=== PATIENT | female | born 1960 | race Caucasian/White ===

== ENCOUNTER 2020-08-30 11:08 | Emergency (ER) | payer MEDICARE, MEDICAID, SELFPAY ==
--- NOTE | ~2020-08-30 | CT_ITS ---
EXAMINATION: CT HEAD WITHOUT CONTRAST CLINICAL INFORMATION: Syncope and head trauma COMPARISON: None TECHNIQUE: Contiguous axial imaging was performed from the skull base to vertex without intravenous administration of contrast. This CT examination was performed using dose optimization techniques as appropriate, variously including the following: *Automated exposure control *Adjustment of mA and/or kV according to patient size (this includes techniques or standardized protocols for targeted exams where dose is matched to indication/reason for exam; i.e. extremities or head) *Use of iterative reconstruction technique DLP: 695 mGy-cm FINDINGS: There is no evidence of acute intracranial hemorrhage or territorial infarction. No abnormal mass effect or midline shift is seen. Valles to white matter differentiation is well preserved. No extra-axial fluid collections are identified. The ventricles are normal in size. There is no abnormal attenuation within the brain parenchyma. The osseous structures and soft tissues are normal. The mastoid air cells and visualized portions of the paranasal sinuses are well aerated. CT/CT head/brain wo con IMPRESSION: No acute intracranial pathology.
[2020-08-30 11:17] VITALS: BP 141/79; PULSE 84; RESP 18; TEMP 36.7; O2SAT 100; BMI 20.5
--- NOTE | 2020-08-30 11:33 | ED_ITS ---
HPI - General Adult General Chief complaint: Fall Stated complaint: fall - head injury Time Seen by Provider: 08/30/20 11:23 Source: patient Mode of arrival: ambulatory Limitations: no limitations History of Present Illness HPI narrative: Patient has a pacemaker and low blood pressure and passes out frequently. she passed out last night and hit her head, not on blood thinners. Patient with nausea, a dent in her head and severe headache Onset (ago): day(s) Location: head Severity: moderate Quality: sharp Pain Consistency: constant Associated symptoms: nausea/vomiting Related Data Allergies Allergy/AdvReac Type Severity Reaction Status Date / Time nitrofurantoin Allergy Intermediate Muscle Pain Verified 08/30/20 11:16 [From MACROBID] From DEMEROL Allergy Intermediate HIVES Uncoded 08/30/20 11:16 Review of Systems Constitutional: Constitutional: Reports no additional constitutional complaints Eyes: Eyes: Reports no additional eye complaints ENT: Denies dizziness Cardiovascular: Cardiovascular: Reports no additional cardiovascular complaints Respiratory: Respiratory: Reports as per HPI Gastrointestinal: Gastrointestinal: Reports no additional gastrointestinal complaints Genitourinary: Genitourinary: Reports no additional female genitourinary complaints Musculoskeletal: Musculoskeletal: Reports no additional musculoskeletal complaints Integumentary/Breasts: Skin/Breast: Denies rash Neurologic: Reports system reviewed and no additional complaints, except as documented, Denies dizziness and Denies Sensory deficit (Neuro) Psychiatric: Psychiatric: Denies anxiety PMFSH Past Medical History Medical History Hypertension Hypotension Neck pain Pacemaker Syncope Social History Social History Alcohol intake: never Smoked in Last 30 Days: No Use of substances other than those prescribed or required for medical reasons: No Advance Directives: No Advance Directives Information Provided: Yes Patient : No Physical Exam Vital Signs: Vital Signs: Last Vital Signs Temp 98.0 F 08/30/20 11:17 Pulse 84 08/30/20 11:17 Resp 18 08/30/20 11:17 BP 141/79 H 08/30/20 11:17 Pulse Ox 100 08/30/20 11:17 Body Mass Index 20.5 Const: General: healthy appearing Nutritional Appearance: average body habitus Orientation/consciousness: oriented to person and patient oriented x3 Limitations: no limitations HENMT: Other: no hemotympanum, hematoma to left parietal area Head: Yes normal to inspection Ears: external ears normal General nose exam: Normal external nose present Mouth: Normal oral and palatal mucosa present and vasyl pharynx normal Throat: Yes posterior oropharynx normal Eyes: General: appearance normal, both eyes and all related structures Neck: Other: supple Neck: Yes normal visual inspection Chest: Chest palpation & inspection: normal inspection of the chest Resp: Auscultation: clear to auscultation bilaterally Cardio: Jugular venous distension: no JVD Rate: regular rate Rhythm: regular rhythm Heart sounds: S1 normal heart sound present and S2 normal heart sound present GI: Inspection: Yes normal to inspection Palpation (GI): Soft to palpation, nontender and No hepatosplenomegaly present Auscultation: normal bowel sounds : General: Yes no CVA tenderness Back/Spine/Pelvis: Back: no CVA tenderness Skin: General skin exam: no rashes or lesions noted Neuro: General: oriented to person and patient oriented x3 Cranial nerves: Yes CN's II-XII intact bilaterally Motor exam (neuro): 5/5 motor strength present throughout Sensory Exam: No Sensory deficit (Neuro) Extrem: General: Yes normal to inspection Psych: Appearance: grossly normal Course Reevaluation(s) Reevaluation #1: patient with known history of syncope with orthostatics and pacer. No evidence of brain or skull injury on Head CT Time: 14:22 Medical Decision Making Lab Data Result diagrams: 08/30/20 12:00 08/30/20 12:00 Labs: Lab Results 08/30/20 08/30/20 08/30/20 Range/Units 12:00 12:00 12:00 WBC 5.2 (4.8-10.8) X10*3/uL RBC 4.33 (4.20-5.50) X10*6/uL Hgb 11.8 L (12.0-16.0) g/dl Hct 37.5 (37-47) % MCV 86.6 (80-98) fL MCH 27.3 (27.0-33.0) pg MCHC 31.5 (31.0-35.0) g/dl RDW 13.7 (11.0-16.0) % Plt Count 250 (160-400) X10*3/uL MPV 9.8 (9.4-12.3) fL Immature Gran % (Auto) 0.4 (0.0-0.4) % Neut % (Auto) 63.0 (45-73) % Lymph % (Auto) 26.1 (20-40) % [place] % (Auto) 6.8 (2-11) % Eos % (Auto) 2.7 (0-4) % Baso % (Auto) 1.0 (0-2) % Lymph # (Auto) 1.4 (1.2-4.9) X10*3/uL [place] # (Auto) 0.4 (0.1-1.2) X10*3/uL Eos # (Auto) 0.1 (0.0-0.4) X10*3/uL Baso # (Auto) 0.1 (0.0-0.2) X10*3/uL Abs Immat Gran (auto) 0.02 (0.00-0.03) X10*3/uL Absolute Neuts (auto) 3.3 (2.0-8.3) X10*3/uL Absolute Nucleated RBC 0.000 (0.0-0.012) X10*3/uL Nucleated RBC % (auto) 0.0 (0.0-0.2) /100WBC Sodium 141 (135-145) mmol/L Potassium 3.9 (3.3-5.1) mmol/L Chloride 108 (96-108) mmol/L Carbon Dioxide 25 (22-29) mmol/L Anion Gap 12 (12-20) BUN 10 (9-16) mg/dL Creatinine 0.99 (0.5-1.4) mg/dL Estim Creat Clear Calc 53.2 Estimated GFR 58 Random Glucose 86 (60-115) mg/dL Calcium 9.3 (8.4-10.2) mg/dL Troponin I High Sens < 3.5 (<3.5-17.0) ng/L Imaging Data CT scan - head: Radiologist's impression: IMPRESSION: No acute intracranial pathology. ECG Data Attestation: I personally reviewed and interpreted this ECG as follows: Interpretation: atrial paced no ischemia Discharge Plan Discharge Clinical Impression: Acute head trauma Qualifiers: Encounter type: initial encounter Qualified Code(s): S09.90XA - Unspecified injury of head, initial encounter Syncope Qualifiers: Syncope type: unspecified Qualified Code(s): R55 - Syncope and collapse Patient Disposition: Home, Self-Care Instructions: Concussion (ED), Syncope (ED) Referrals: Tamika Barba PA [Primary Care Provider] - 5 days
--- NOTE | 2020-08-30 11:36 | ECG_ITS ---
Test Reason : FALL Blood Pressure : / mmHG Vent. Rate : 080 BPM Atrial Rate : 080 BPM P-R Int : 172 ms QRS Dur : 092 ms QT Int : 386 ms P-R-T Axes : 089 047 058 degrees QTc Int : 445 ms Atrial-paced rhythm Low voltage QRS Abnormal ECG No previous ECGs available Referred By: Edmond Marr Electronically Signed By:TOMER RECIO
[2020-08-30] MEDS: Acetaminophen 325 MG TABLET 975 MG PO (11:56)
[2020-08-30 12:16] LABS: MANUAL DIFF FLAG NO
[2020-08-30 12:17] LABS: Basophils Absolute Auto 0.1 X10*3/uL (0.0-0.2); Eosinophils Absolute Auto 0.1 X10*3/uL (0.0-0.4); Eosinophils Percent Auto 2.7 % (0-4); Hematocrit 37.5 % (37-47); Hemoglobin 11.8 g/dl (12.0-16.0); Imm Gran Abs Auto 0.02 X10*3/uL (0.00-0.03); Imm Gran Pct Auto 0.4 % (0.0-0.4); Lymphocytes Absolute Auto 1.4 X10*3/uL (1.2-4.9); Lymphocytes Percent Auto 26.1 % (20-40); Mean Corpuscular HGB Conc 31.5 g/dl (31.0-35.0); Mean Corpuscular Hemoglobin 27.3 pg (27.0-33.0); Mean Corpuscular Volume 86.6 fL (80-98); Mean Platelet Volume 9.8 fL (9.4-12.3); Monocytes Absolute Auto 0.4 X10*3/uL (0.1-1.2); Monocytes Percent Auto 6.8 % (2-11); Neutrophils Absolute Auto 3.3 X10*3/uL (2.0-8.3); Platelet Count 250 X10*3/uL (160-400); Red Blood Count 4.33 X10*6/uL (4.20-5.50); Red Cell Distribution Width 13.7 % (11.0-16.0); White Blood Count 5.2 X10*3/uL (4.8-10.8)
[2020-08-30 12:43] LABS: Anion Gap 12 (12-20); Blood Urea Nitrogen 10 mg/dL (9-16); Calcium 9.3 mg/dL (8.4-10.2); Carbon Dioxide 25 mmol/L (22-29); Chloride 108 mmol/L (96-108); Creatinine Clr Calc Pharmacy 53.2; Estimated Glomerular Filt Rate 58; Glucose Random 86 mg/dL (60-115); Potassium 3.9 mmol/L (3.3-5.1); Sodium 141 mmol/L (135-145)
[2020-08-30 12:46] LABS: Troponin-I High Sensitivity < 3.5 ng/L (<3.5-17.0)
[2020-08-30 14:26] VITALS: BP 155/85; PULSE 80; RESP 16; TEMP 36.8; O2SAT 100
== END 2020-08-30 14:29 | disposition home or self-care (01) ==
PROVIDERS: Emergency Provider Emergency Medicine; PCP Physician Assistant Medical
DX: R55 Syncope and collapse (principal); S09.90XA Unspecified injury of head, initial encounter; I95.9 Hypotension, unspecified; I10 Essential (primary) hypertension; W18.30XA Fall on same level, unspecified, initial encounter; Y93.9 Activity, unspecified; Y92.9 Unspecified place or not applicable; Y99.9 Unspecified external cause status; Z95.0 Presence of cardiac pacemaker
CPT/HCPCS: 36415; 70450; 80048; 84484; 85025; 93005; 99285

== ENCOUNTER 2023-03-30 12:44 | Emergency (ER) | payer MEDICARE, MEDICAID, SELFPAY ==
--- NOTE | ~2023-03-30 | XR_ITS ---
EXAMINATION: XR WRIST, LEFT CLINICAL INFORMATION: Status post fall. Left wrist pain. COMPARISON: None available. TECHNIQUE: PA, lateral, and oblique views of the left wrist. FINDINGS: Impacted intra-articular distal radial metaphyseal fracture is noted with dorsal angulation. Radiocarpal alignment is maintained. Mildly displaced ulnar styloid fracture. Soft tissue swelling over the wrist and distal forearm is noted. No evidence of soft tissue air or radiopaque foreign body. No additional acute fractures of the remainder of the visualized osseous structures are noted. Osteoarthritic changes are noted at first carpal metacarpal articulation. XR/XR wrist LT min 3V IMPRESSION: Impacted intra-articular left distal radial metaphyseal fracture with dorsal angulation. Radiocarpal alignment appears to be maintained. Minimally displaced ulnar styloid fracture.
--- NOTE | ~2023-03-30 | XR_ITS ---
EXAMINATION: XR WRIST, LEFT CLINICAL INFORMATION: Post reduction film. COMPARISON: Radiograph left wrist earlier today 1:46 PM to 06/14/2023. TECHNIQUE: Two views of the left wrist. FINDINGS: Overlying casting limits evaluation of fine osseous details. Stable appearance of impacted intra-articular distal radial fracture with unchanged dorsal angulation. Stable minimally displaced ulnar styloid fracture. Similar degree of soft tissue swelling. XR/XR wrist LT min 3V IMPRESSION: Stable appearance of distal radial and ulnar styloid fractures.
--- NOTE | ~2023-03-30 | XR_ITS ---
EXAMINATION: XR WRIST, LEFT CLINICAL INFORMATION: Postreduction films. COMPARISON: Left wrist performed earlier today at 4:34 PM. TECHNIQUE: PA, lateral, and oblique views of the left wrist. FINDINGS: There is satisfactory alignment of distal radial intra-articular fracture with mild dorsal angulation. The entire left wrist and the adjacent structures are in a hard cast. XR/XR wrist LT min 3V IMPRESSION: Satisfactory alignment of distal radial intra-articular fracture status post reduction with mild dorsal angulation. Entire left wrist is in a hard cast no change from early exam at 4:34 PM.
[2023-03-30 12:52] VITALS: BP 190/98; BMI 21.5
--- NOTE | 2023-03-30 13:26 | ED_ITS ---
HPI - Fall General Chief Complaint: Fall Stated Complaint: FELL L WRIST DEFORMITY Time Seen by Provider: 03/30/23 13:24 Source: patient, family () and EMS Mode of arrival: EMS Limitations: no limitations History of Present Illness HPI Narrative: 62 year old right hand dominant female with no significant pmhx presents to the ED today via EMS with left wrist pain s/p FOOSH prior to arrival. Admits to popping balloons, stomping on them when she lost her balance causing her to fall backwards. She attempted to catch herself with her left hand/wrist. Endorses immediate pain/ deformity to left wrist. Denies head strike or LOC. Not on AC. Has not taken any OTC meds prior to arrival in ED. Denies headache, dizziness, fevers, nausea, vomiting, numbness/tingling/weakness of the left upper extremity. Related Data Previous Rx's Medication Instructions Recorded ondansetron 4 mg disintegrating 4 mg PO DAILY PRN nausea and 03/30/23 tablet vomiting 5 days #10 tabs oxycodone 5 mg tablet 5 mg PO Q8H PRN pain (scale score 03/30/23 7-10) #10 tabs prednisone 20 mg tablet 20 mg PO DAILY 5 days #5 tabs 03/30/23 Allergies Allergy/AdvReac Type Severity Reaction Status Date / Time nitrofurantoin Allergy Intermediate Muscle Pain Verified 08/30/20 11:16 [From MACROBID] From DEMEROL Allergy Intermediate HIVES Uncoded 08/30/20 11:16 Review of Systems Review of Systems: Constitutional: No fever, chills, fatigue, night sweats, weight changes ENT/Mouth: No ear pain, hearing loss, nasal congestion, sinus pain, rhinorrhea, sore throat Eyes: No eye pain, swelling, redness, vision changes, discharge Cardio: No chest pain, palpitations, MARTI, orthopnea, peripheral edema Pulm: No SOB, cough, sputum, wheezing, dyspnea, hemoptysis GI: No nausea, vomiting, hematemesis, abdominal pain, diarrhea, constipation, hematochezia, melena : No irregular bleeding, dysuria, frequency, urgency, hesitancy, hematuria, flank pain, urinary flow changes, urinary incontinence or retention MSK: No back pain, neck pain, joint pain, myalgias, +left wrist pain/ deformity Skin: No lesions, rashes Neuro: No weakness, numbness, paresthesias, LOC, dizziness, headache All other systems reviewed and are negative. [facility] Past Medical History Attestation statement: The following information was validated with the patient. Source: old records reviewed and nursing notes reviewed Medical History Neck pain Syncope Hypertension Hypotension Pacemaker Social History Social History Alcohol intake: current Alcohol intake frequency: holidays/special occasions only Smoked in Last 30 Days: No Use of substances other than those prescribed or required for medical reasons: No Advance Directives: No Advance Directives Information Provided: Yes Patient : No Physical Exam Vital Signs: Vital Signs: Last Vital Signs Temp 98.8 F 03/30/23 14:15 Pulse 83 03/30/23 14:15 Resp 16 03/30/23 14:15 BP 173/87 H 03/30/23 14:15 Pulse Ox 100 03/30/23 14:15 BMI result Body Mass Index 21.5 Vital signs notable for hypertension, likely secondary to pain. Const: General: cooperative, healthy appearing and no acute distress Orientation/consciousness: patient oriented x3 Limitations: no limitations HEENT: Head: Yes normal to inspection, Yes normocephalic and Yes atraumatic Eyes: General: appearance normal, both eyes and all related structures Conjunctivae: conjunctivae normal Sclerae: sclerae normal Pupils: Equal, round and reactive pupils present Resp: Effort & Inspection: normal respiratory effort Auscultation: clear to auscultation bilaterally Cardio: Other: 2+ radial pulses Rate: regular rate Rhythm: regular rhythm Skin: General skin exam: no rashes or lesions noted Neuro: Other: + NV intact distally. Sensation intact t hroughout. Decreased managing consultant strength to LUE secondary to pain. Decreased finger to thumb opposition secondary to pain. General: patient oriented x3 Cranial nerves: Yes Equal, round and reactive pupils present Extrem: Other: + dinner fork deformity noted to left wr ist. No tenting. No open wounds/abrasions/lacerations. Diffusely ttp of entire left wrist. No snuffbox tenderness. Limited ROM of left wrist. Full ROM to all digits on left hand however limited secondary to pain in wrist. Pain with supination and pronation of left upper extremity. Normal capillary refill. 2+ radial pulses. Course Course Course Narrative: 1455-- XR left wrist showing impacted intra-articular left distal radial metaphyseal fracture with dorsal angulation. The radiocarpal alignment is maintained. There is also minimally displaced ulnar styloid fracture. Patient informed of results. Will attempt reduction and place sugar-tong splint. Patient reports pain improvement with IV morphine. 1612- Attempted manual reduction with hematoma block for pain control with my colleague, Mekhi OROPEZA Sugar tong splint placed. Post reduction films ordered to confirm placement. 1800-- post reduction films showing stable appearance of distal radial and ulnar styloid fractures. On my personal review of the x-ray, the distal radius does not appear well reduced. Discussed case with my attending physician, Dr. Collazo, who recommended traction/counter-traction with finger traps. Patient's arm held in finger traps for approximately 30 minutes. Further reduction was attempted and new sugartong splint was place. >> 2nd set of post reduction films show improvment in dorsal angulation. She is NV intact distally. Freely moving fingers without pain. Cap refill <2 seconds. She endorses improvement in pain with stabilization and oxycodone. Informed patient of all workup results. Will provide her with ortho referral for follow up this week as this will likely require surgical fixation. Oxycodone, Zofran and prednisone sent to pharmacy. Discussed worrisome signs and symptoms and when to return to the ED. all questions answered at this time. she has remained stable throughout her visit. her will be driving her home today. Patient is agreeable with disposition and stable for discharge. Medications Administered Discontinued Medications Generic Name Dose Route Start Last Admin Trade Name Freq PRN Reason Stop Dose Admin Lidocaine HCl 5 ml 03/30/23 15:02 03/30/23 15:20 Lidocaine Hcl 1 % Mpf 5 Ml Vial INFILTRATI 03/30/23 15:03 5 ml ONCE ONE Administration Lidocaine HCl 5 ml 03/30/23 15:03 03/30/23 15:20 Lidocaine Hcl 1 % Mpf 5 Ml Vial INFILTRATI 03/30/23 15:04 5 ml ONCE ONE Administration Lidocaine HCl 5 ml 03/30/23 15:03 03/30/23 15:23 Lidocaine Hcl 1 % Mpf 5 Ml Vial INFILTRATI 03/30/23 15:04 5 ml ONCE ONE Administration Morphine Sulfate 2 mg 03/30/23 13:35 03/30/23 13:41 Morphine Sulfate 2 Mg/Ml Cartridge IVPUSH 03/30/23 13:36 2 mg ONCE ONE Administration Protocol Morphine Sulfate 2 mg 03/30/23 14:01 03/30/23 14:11 Morphine Sulfate 2 Mg/Ml Cartridge IVPUSH 03/30/23 14:02 2 mg ONCE ONE Administration Protocol Morphine Sulfate 4 mg 03/30/23 15:10 03/30/23 15:17 Morphine Sulfate 4 Mg/Ml Cartridge IVPUSH 03/30/23 15:11 4 mg ONCE ONE Administration Protocol Morphine Sulfate 2 mg 03/30/23 17:21 03/30/23 17:32 Morphine Sulfate 2 Mg/Ml Cartridge IVPUSH 03/30/23 17:22 2 mg ONCE ONE Administration Protocol Ondansetron HCl 4 mg 03/30/23 13:38 03/30/23 13:41 Ondansetron Hcl 4 Mg/2 Ml Vial IVPUSH 03/30/23 13:39 4 mg ONCE ONE Administration Ondansetron HCl 4 mg 03/30/23 17:21 03/30/23 17:32 Ondansetron Hcl 4 Mg/2 Ml Vial IVPUSH 03/30/23 17:22 4 mg ONCE ONE Administration Oxycodone HCl 5 mg 03/30/23 17:45 03/30/23 17:50 Oxycodone Hcl Immed Release 5 Mg Tablet PO 03/30/23 17:46 5 mg ONCE ONE Administration Procedures Orthopedic Fracture Reduction Fracture #1: Time Out Performed: Yes Side: left Fracture Reduction Location: radius and ulna Analgesia: hematoma block Technique: direct manipulation, traction/counter-traction and finger traps Post Reduction X-rays Demonstrate: acceptable reduction Post-reduction neuro exam: intact Post-reduction vascular exam: intact Splint Applied: Yes (sugar tong) Patient Tolerated Procedure: well Orthopedic Splinting/Casting Injury #1: Side: left Upper Extremity Injury Location: forearm, wrist and hand Upper Extremity Immobilizer: sling/shoulder immobilizer and sugar tong splint Medical Decision Making Medical Decision Making MDM Narrative: 62 year old right hand dominant female with no significant pmhx presents to the ED today via EMS with left wrist pain s/p FOOSH prior to arrival. Patient hypertensive to 173/87 likely secondary to pain. Vitals otherwise WNL. On exam, dinner fork deformity noted to left wrist. No tenting. No open wounds/abrasions/lacerations. Limited ROM of left wrist. Full ROM to all digits on left hand however limited secondary to pain in wrist. Pain with supination and pronation of left upper extremity. Diffusely ttp of entire left wrist. No snuffbox tenderness. Normal capillary refill. 2+ radial pulses. Clinical concern for fracture, dislocation. Unlikely scaphoid fracture, open fracture, septic joint, NV compromise, compartment syndrome, threat to limb. Plan for radiographs, pain control, reduction, and re-evaluation. Differential Diagnosis Differential Diagnoses: The differential diagnosis associated with the p resentation includes As above Independent Interpretation I performed an independent interpretation of an: Plain X-Ray Interpretation: I personally reviewed x-ray and agree with radiologist's interpretation. Radiology Impression Discussion of test interpretation with radiology: I have reviewed the radiologist's reading. Radiologist Impression: XR wrist LT min 3V IMPRESSION: Impacted intra-articular left distal radial metaphyseal fracture with dorsal angulation. Radiocarpal alignment appears to be maintained. Minimally displaced ulnar styloid fracture. XR wrist LT min 3V IMPRESSION: Stable appearance of distal radial and ulnar styloid fractures. XR wrist LT min 3V IMPRESSION: Satisfactory alignment of distal radial intra-articular fracture status post reduction with mild dorsal angulation. Entire left wrist is in a hard cast no change from early exam at 4:34 PM. Independent Historian Clinical information obtained from an independent historian. History obtained from or confirmed by: Spouse () External Record Review External record reviewed: Inpatient record Prescription Management I considered prescription management with: Pain Medication (oxycodone) and Other (zofran, prednisone) Social Determinants Patient?s care significantly limited by Social Determinants of Health including: Other Social Determinant of Health Critical Care Time Critical Care Time Critical Care Time: Yes Total Critical Care Time: 60 Attestation: Critical care time in the amount of 60 minutes has been provided to the patient in terms of direct patient care, frequent reevaluation, review and interpretation of medical data and results, and management of potentially life- threatening conditions. This is all outside of any medical procedures. Discharge Plan Discharge Clinical Impression: Fracture of distal end of radius with dorsal angulation, Displaced fracture of left ulna styloid process, initial encounter for closed fracture Patient Disposition: Home, Self-Care Instructions: Wrist Fracture in Adults (ED), Splint Care (ED) Additional Instructions: You were evaluated in the ED today for left wrist pain/ deformity after fall. Your initial x-rays show an impacted intra-articular left distal radial metaphyseal fracture with dorsal angulation and a mildly displaced ulnar styloid fracture. Prednisone as a steroid that has been sent to your pharmacy. Take this as prescribed over the next 5 days to help with inflammation/ swelling. Oxycodone is a controlled pain medication that has been sent to your pharmacy. Take this as needed for severe pain. Zofran is an antinausea medication that has been sent to your pharmacy. Take this as needed for nausea as oxycodone can make you nauseous. You may also take Tylenol and ibuprofen as needed for pain/discomfort. Please refer to the splint care section on how to care for your splint. Keep it dry clean and intact until you follow-up with ortho. YOU HAVE BEEN PROVIDED WITH A REFERRAL TO [facility], DR. CARRINGTON. YOU NEED TO CALL THEM TO SCHEDULE AN APPOINTMENT. THEY WILL NOT CALL YOU. CALL THEM TOMORROW MORNING. If you find that your splint becomes too tight, you have difficulty moving your fingers, your fingers become discolored, you lose feeling in your hand/fingers, or pain can not be managed by pain medication, return to the emergency d epartment as these are all signs at the splint needs to come off. In the case of an emergency call 911. [facility] orthopedic surgeons, Dr. Carrington. [phone] Prescriptions: New ondansetron 4 mg tablet,disintegrating 4 mg PO DAILY PRN (Reason: nausea and vomiting) 5 Days Qty: 10 0RF oxycodone 5 mg tablet 5 mg PO Q8H PRN (Reason: pain (scale score 7-10)) Qty: 10 0RF Rx Instructions: Partial Fill upon patient request. prednisone 20 mg tablet 20 mg PO DAILY 5 Days Qty: 5 0RF Referrals: [facility] [Provider Group] - 3 days (Impacted intra-articular left distal radial metaphyseal fracture with dorsal angulation. Radiocarpal alignment appears to be maintained. Minimally displaced ulnar styloid fracture.) Stand Alone Forms: Work/School Release Interventions: ED Discharge Assessment Last Done: 03/30/23 18:52 Discharge Date/Time: 03/30/23 18:52
[2023-03-30] MEDS: ondansetron HCL 4 MG/2 ML VIAL IVPUSH ×2 (13:41→17:32)
[2023-03-30] MEDS: Morphine Sulfate 2 MG/ML CARTRIDGE IVPUSH ×3 (13:41→17:32)
[2023-03-30 14:15] VITALS: BP 173/87; PULSE 83; RESP 16; TEMP 37.1; O2SAT 100
[2023-03-30] MEDS: Morphine Sulfate 4 MG/ML CARTRIDGE IVPUSH (15:17)
[2023-03-30] MEDS: Lidocaine HCl 1 % MPF 5 ML VIAL INFILTRATI ×3 (15:20→15:23)
[2023-03-30] MEDS: oxyCODONE HCl Immed Release 5 MG TABLET PO (17:50)
== END 2023-03-30 18:52 | disposition home or self-care (01) ==
PROVIDERS: Emergency Provider Student in an Organized Health Care Education/Training Program; PCP Physician Assistant Medical
DX: S52.502A Unspecified fracture of the lower end of left radius, initial encounter for closed fracture (principal); S52.612A Displaced fracture of left ulna styloid process, initial encounter for closed fracture; M25.532 Pain in left wrist; Y33.XXXA Other specified events, undetermined intent, initial encounter; Y93.9 Activity, unspecified; Y92.9 Unspecified place or not applicable; Y99.8 Other external cause status
CPT/HCPCS: 25605; 29125; 73110; 96374; 96375; 96376; 99284; J2270; J2405

== ENCOUNTER 2023-03-31 14:40 | Outpatient (AMB) | payer MEDICARE, MEDICAID, SELFPAY ==
--- NOTE | 2023-03-31 14:45 | A.OFFVIS_ITS ---
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 States she was popping balloons, stomping on them when she lost her balance causing her to fall backwards. She attempted to catch herself with her left hand/wrist. Seen in ED where xrays were taken, reduction was attempted, hand was splinted and referred to orthopedics. Currently states she has mild pain, denies numbness or tingling. 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 She was seen at ED where x-rays were performed, reduction was attempted, hand was splinted and she was referred to our office. She currently states she has mild pain in her hand however she denies any numbness or tingling. She is currently retired. [facility] Medical History (Updated 03/31/23 @ 16:09 by Shawn Ahuja PA-C) Neck pain Syncope Hypertension Hypotension Pacemaker Surgical History (Updated 03/31/23 @ 15:02 by Shawn Ahuja PA-C) H/O oral surgery H/O right knee surgery Social History Alcohol intake: current Alcohol intake frequency: holidays/special occasions only Review of Systems Const All systems reviewed & are unremarkable except as noted in HPI and below Physical Exam Vital Signs: BMI result Body Mass Index 21.5 Const General: cooperative, healthy appearing, comfortable, no acute distress, well developed and alert Orientation/consciousness: patient oriented x3 HEENT Head: Yes normal to inspection, Yes normocephalic and Yes atraumatic Eyes General: appearance normal, both eyes and all related structures Neck Neck: Yes normal visual inspection and Yes no lymphadenopathy Resp Effort & Inspection: normal respiratory effort and able to speak in complete sentences Cardio Rate: regular rate Peripheral pulses: Peripheral pulses 2+ throughout GI Inspection: Yes normal to inspection Palpation (GI): Soft to palpation Skin General skin exam: no rashes or lesions noted Neuro General: patient oriented x3 Extrem Other: Left wrist: There is a superficial skin tear over the doral aspect of the wrist. There is significant swelling and bruising over the distal radius with tenderness over the fracture site. There is no pain over the elbow, negative forearm squeeze test. She has full range of motion of the elbow. She can fully extend all digits and make a closed fist. Pulses are present and she is neurovascularly intact. Psych Appearance: grossly normal Mental Status: mental status grossly normal Office Procedures Casting/Splints 78321-Bbeg/Wrist Cast Application Procedure code (CPT) selection complete Fracture Care Fracture Billing Code: Fracture Billing Code Results Reviewed Results Reviewed: xrays left wrist 02/27/23 IMPRESSION: Impacted intra-articular left distal radial metaphyseal fracture with dorsal angulation. Radiocarpal alignment appears to be maintained. Minimally displaced ulnar styloid fracture. Assessment & Plan Assessment & Plan (1) Distal radius fracture, left: Code(s): S52.502A - Unspecified fracture of the lower end of left radius, initial encounter for closed fracture Plan I discussed the extent of the injury to the patient and options available. Given the extent of the fracture pattern and high risk of further displacement, it is recommended that we surgically fix this to help with stability and restoring anatomy. I explained to the patient the procedure in detail along with the risks, benefits and alternatives. Risks including but not limited to infection, wound breakdown, stiffness, ongoing pain, nonunion or malunion, and possible complications with hardware. She does understand all this and would like to proceed with closed versus open reduction internal fixation of the left distal radius with Dr. Mcdonough. She will be booked accordingly. Patient Instructions: Scribed for Shawn Ahuja PA-C, by Lucio David coroner/medical examiner, on 03/31/2023 at 2:30 PM EST. IShawn PA-C, have personally reviewed and agree with the information entered by the scribe. Coding Level of Care Code New Pt Level 4 (64740) Diagnoses Distal radius fracture, left S52.502A CPT Codes Casting - CPT: 74678-Trkc/Wrist Cast Application ([id number]) Fracture Care - Fracture Billing Code: Fracture Billing Code ([id number])
[2023-03-31 14:46] VITALS: BMI 21.5
== END 2023-03-31 15:35 | disposition home or self-care (01) ==
PROVIDERS: PCP Physician Assistant Medical; Visit Provider Physician Assistant
DX: S52.502A Unspecified fracture of the lower end of left radius, initial encounter for closed fracture (principal)
CPT/HCPCS: 25600; 99204

== ENCOUNTER → 2023-03-31 14:40 | Outpatient (BNVA) | payer MEDICARE, MEDICAID, SELFPAY | PROVIDERS: PCP Physician Assistant Medical; Visit Provider Physician Assistant | DX: S52.502A Unspecified fracture of the lower end of left radius, initial encounter for closed fracture (principal) | CPT/HCPCS: 25600; 99202 ==

== ENCOUNTER 2023-04-03 07:44 | Day surgery (SDC) | payer MEDICARE, MEDICAID, SELFPAY ==
--- NOTE | 2023-04-02 12:26 | P.CONAN_ITS ---
Documented by User: Connie Arauz NP 04/02/23 15:13 HPI - Anesthesia Eval Consult details Narrative: 62yo F for Left Wrist ORIF Pacer in situ (for autonomic dysfunction): Dr Barnes from [facility], info pending [facility] Active Problems Active Problems: All Active Problems (Updated 03/31/23 @ 16:09 by Shawn Ahuja PA-C) Distal radius fracture, left (Acute) Past Medical History Medical History (Updated 03/31/23 @ 16:09 by Shawn Ahuja PA-C) Neck pain Syncope Hypertension Hypotension Pacemaker Surgical History Surgical History (Updated 04/03/23 @ 08:13 by Isela Fernando RN) History of surgery H/O oral surgery H/O right knee surgery Social History Social History Alcohol intake: current Alcohol intake frequency: holidays/special occasions only Patient Tobacco Use Status: Never used Tobacco Use of substances other than those prescribed or required for medical reasons: Yes Are you DNR?: No Advance Directives: No Advance Directives Information Provided: Yes Meds Allergies Allergy/AdvReac Type Severity Reaction Status Date / Time nitrofurantoin Allergy Intermediate Muscle Pain Verified 03/31/23 14:52 [From MACROBID] caffeine [From Cafergot] Allergy Unknown Verified 04/03/23 08:12 ergotamine [From Cafergot] Allergy Unknown Verified 04/03/23 08:12 From DEMEROL Allergy Intermediate HIVES Uncoded 03/31/23 14:52 Home Medications Medication Instructions Recorded Confirmed Last Taken Type albuterol sulfate 90 mcg/actuation 2 puff inhalation Q6H PRN SOB 04/03/23 04/03/23 Unknown History aerosol inhaler amlodipine 5 mg tablet 5 mg PO DAILY 04/03/23 04/03/23 Unknown History toqboeudck-wedepxzjqupwh-whtsqclu 1 PO Q6H PRN pain 04/03/23 Unknown History 50 mg-300 mg-40 mg capsule gabapentin 600 mg tablet 600 mg PO BID 04/03/23 04/03/23 Unknown History linaclotide 290 mcg capsule 290 mcg PO DAILY 04/03/23 04/03/23 Unknown History (Linzess) meloxicam 15 mg tablet 15 mg PO DAILY PRN pain 04/03/23 04/03/23 Unknown History rimegepant 75 mg disintegrating 75 mg PO DAILY PRN migraine 04/03/23 04/03/23 Unknown History tablet (Nurtec ODT) tizanidine 2 mg tablet 4 mg PO TID 04/03/23 04/03/23 Unknown History venlafaxine 150 mg tablet,extended 150 mg PO DAILY 04/03/23 04/03/23 Unknown History release 24 hr Exam Narrative Narrative: Pacer interrogation 01/2023 DDD 60-140 Nml lead and device function One SVT lasting 4 seconds Generator estimated at 45% Assessment and Plan Assessment Anesthesia Assessment: Chart Reviewed Documented by User: Olimpia Barrera MD 04/03/23 10:36 [facility] Past Medical History Medical History (Updated 03/31/23 @ 16:09 by Shawn Ahuja PA-C) Neck pain Syncope Hypertension Hypotension Pacemaker Family History Family history of problems with anesthesia: No Surgical History Surgical History (Updated 04/03/23 @ 08:13 by Isela Fernando RN) History of surgery H/O oral surgery H/O right knee surgery History of Problems with Anesthesia: No Social History Social History Alcohol intake: current Alcohol intake frequency: holidays/special occasions only Patient Tobacco Use Status: Never used Tobacco Use of substances other than those prescribed or required for medical reasons: Yes Are you DNR?: No Advance Directives: No Advance Directives Information Provided: Yes Meds Allergies Allergy/AdvReac Type Severity Reaction Status Date / Time nitrofurantoin Allergy Intermediate Muscle Pain Verified 03/31/23 14:52 [From MACROBID] caffeine [From Cafergot] Allergy Unknown Verified 04/03/23 08:12 ergotamine [From Cafergot] Allergy Unknown Verified 04/03/23 08:12 From DEMEROL Allergy Intermediate HIVES Uncoded 03/31/23 14:52 Home Medications Medication Instructions Recorded Confirmed Last Taken Type albuterol sulfate 90 mcg/actuation 2 puff inhalation Q6H PRN SOB 04/03/23 04/03/23 Unknown History aerosol inhaler amlodipine 5 mg tablet 5 mg PO DAILY 04/03/23 04/03/23 Unknown History kkpxjcojkz-grwaoqcufebdu-klezbapm 1 PO Q6H PRN pain 04/03/23 Unknown History 50 mg-300 mg-40 mg capsule gabapentin 600 mg tablet 600 mg PO BID 04/03/23 04/03/23 Unknown History linaclotide 290 mcg capsule 290 mcg PO DAILY 04/03/23 04/03/23 Unknown History (Linzess) meloxicam 15 mg tablet 15 mg PO DAILY PRN pain 04/03/23 04/03/23 Unknown History rimegepant 75 mg disintegrating 75 mg PO DAILY PRN migraine 04/03/23 04/03/23 Unknown History tablet (Nurtec ODT) tizanidine 2 mg tablet 4 mg PO TID 04/03/23 04/03/23 Unknown History venlafaxine 150 mg tablet,extended 150 mg PO DAILY 04/03/23 04/03/23 Unknown History release 24 hr Exam Airway Mallampati Class: I TM Dist: >3cm Neck ROM: Full Assessment and Plan Assessment Anesthesia Assessment: Anesthesia Plan Discussed Final Anesthetic Review Family History of Problems with Anesthesia: No History of Problems with Anesthesia: No NPO: Yes ASA Class: II Final Preanesthetic Review: No Changes in Pt Med Stat, Meds/Allgs Chart Reviewed, Consent Obtained/Reviewed and Anes Risks/Benef Reviewed Patient Risk: Low Procedure Risk: Low Anesthetic Plan Anesthetic Plan: GA and Regional Block Disposition: Standard PACU
--- NOTE | ~2023-04-03 | FL_ITS ---
CLINICAL INDICATION: Left wrist fracture. FINDINGS: Technical assistance and equipment were provided by the Department of Radiology during intraoperative fluoroscopy for left wrist ORIF. 3, limited fluoroscopic spot images are submitted. A radiologist was not present during the procedure. Images demonstrate placement of fixation plate and screws across a previously seen fracture of the distal end of the radius. Fracture fragments appear in gross anatomic alignment. Ulnar styloid avulsion fracture. The images are available for review on PACS. TOTAL FLUOROSCOPY TIME: 20 seconds. DOSE AREA PRODUCT: 0.03 Gy-cm2 (fermin-centimeter squared) FL/FL guidance in OR IMPRESSION: Technical assistance and equipment provided by the Department of Radiology during intraoperative fluoroscopy, as above. Please see operative report for further details.
--- NOTE | 2023-04-03 07:47 | P.OP_ITS ---
Operative Note Operative Note Date of Service: 04/03/23 Narrative: Operative Note Narrative: Preop diagnosis: 1. Left Distal radius fracture Postop diagnosis: Same Procedure: 1. Left Distal radius fracture open reduction internal fixation, intra-articular 2 part Surgeon: Eloise Mcdonough MD Anesthesia: General anesthesia plus regional block Findings: Implants: A 3 hole Accu Med volar locking plate, with 4x 2.3 mm locking pegs/screws, and 3 3.5 mm cortical screws Tourniquet time: 57 minutes EBL: 5.0 ml Specimen: None Drains: None Complications: None Disposition: Brought to the recovery room in stable condition Plan: Follow-up in 10-14 days for wound check, suture removal and postop radiographs The patient will be placed in either a a volar wrist splint. Encouraged no lifting of anything heavier than a cell phone. Please encourage active and passive range of motion of the digits. Follow-up at 4-5 weeks postop for repeat radiographs and to check range of motion. Indications: The patient is a 62 year old woman with significantly displaced left distal radius fracture . The risks and benefits of operative treatment, including but not limited to risk of damage to blood vessels, nerves, tendons, infection, recurrence, persistent pain or numbness, incomplete resolution of preoperative symptoms, or need for further surgery were discussed with the patient and they wished to proceed with surgery. Procedure: Once consent was obtained patient was brought back to the operating suite and placed in the operating table in a supine position. A regional block was performed by the anesthesia team. Perioperative antibiotics and anesthesia was administered by the anesthesia team. A tourniquet was applied to the proximal aspect of the left upper extremity and the limb was prepped and draped in a standard surgical fashion. The limb was elevated exsanguinated with Esmarch bandage and the tourniquet inflated to 250 mm of mercury for a total tourniquet time of 57 minutes. The FluoroScan was used throughout the case to assess our reduction, and facilitate implant placement. A gentle closed reduction was 1st performed on the patient's left distal radius fracture. Was assessed radiographically before proceeding with the reduction internal fixation. I then made an 8 cm longitudinal incision over the distal aspect of the flexor carpi radialis tendon. The incision was made through the skin to the subcutaneous tissue using a 15. Blade. Then carefully dissected down to flexor carpi radialis tendon she tenotomy scissors. The FCR tendon sheath was then incised longitudinally using tenotomy scissors under direct visualization. The FCR tendon was then retracted ulnarly. I then made a longitudinal incision in the volar forearm fascia through the floor of FCR tendon sheath using tenotomy scissors under direct visualization. I identified the interval between the radial artery and the flexor tendons. This interval was developed further with my index finger, releasing some of the muscular fibers of the flexor pollicis longus. A dull weatlander retractor was then placed. I then created an ulnarly based flap of the pronator quadratus by releasing the radial and distal edges using a 15. Blade. A Soares elevator was used to elevate the pronator quadratus from the volar surface of the distal radius. This then revealed to us our distal radius fracture. There was an intra-articular fracture line extending from the transverse fracture line into the lunate facet. A narrow rongeur was used to retrieve a small amount of the pronator quadratus muscle from the fracture site. An open reduction was then performed on our distal radius fracture. I then placed a short narrow 3 hole Accu Med volar locking plate on the volar surface of the distal radius. I placed a single K-wire through the distal aspect of the plate and into the distal radius. This was assessed using fluoroscopic images. I was satisfied with the placement of our plate. I then placed 4x 2.3 mm locking screws/pegs in the distal aspect of the plate and distal radius by 1st drilling bicortically with a 1.8 mm drill bit, measuring with a depth gauge, and placing the appropriate length locking screws/pegs. The placement of our plate and screws was then assessed again using fluoroscopic images. The once satisfied with the placement of the volar locking plate and screws on the distal aspect of the distal radius, the plate was then reduced to the shaft of the radius. I then placed 3 x 3.5 mm cortical screws to the proximal aspect of the plate and into the shaft of the radius. This was done by 1st drilling bicortically with a 2.8 mm drill bit, measuring with a depth gauge, and placing the appropriate length screw. Final radiographs were then obtained. The DRUJ was assessed and found to be stable on exam. I was satisfied with our reduction and placement of all implants. At this point the wound was irrigated with normal saline. The pronator quadratus not found to be repairable. The tourniquet was then deflated and h emostasis was obtained with a brief period of local pressure and bipolar monopolar electrocautery. The subcutaneous layer was then reapproximated using some 4-0 Vicryl suture, and the skin edges were reapproximated using some 5 0 Prolene suture. The wound was then infiltrated with some 0.5% plain Marcaine postop pain control. A sterile dressing and a short dorsal splint allowing for active flexion and extension of the digits was applied. The patient appears to have tolerated the procedure well and with no complications. All digits were well vascularized conclusion of the case.
[2023-04-03 08:18] VITALS: BMI 23.4
[2023-04-03 08:45] VITALS: BP 186/95; PULSE 75; RESP 16; TEMP 37.1; O2SAT 99
[2023-04-03] MEDS: Lactated Ringers 1,000 ML 100 ML IVCONT (09:03)
--- NOTE | 2023-04-03 09:32 | MHC.SHP ---
Pre-Procedural Eval Section A - 24 Hr Update-Section A only Date of Service: 04/03/23 Section B - Complete if H&P > 30 days Chief Complaint: Unspecified fracture of the lower end of left radi Allergies: Allergies Allergy/AdvReac Type Severity Reaction Status Date / Time nitrofurantoin Allergy Intermediate Muscle Pain Verified 03/31/23 14:52 [From MACROBID] caffeine [From Cafergot] Allergy Unknown Verified 04/03/23 08:12 ergotamine [From Cafergot] Allergy Unknown Verified 04/03/23 08:12 From DEMEROL Allergy Intermediate HIVES Uncoded 03/31/23 14:52 Plan I have reviewed the history and physical and performed a pertinent physical examination on my patient. No changes have occurred unless specified. Time Spent With Patient Time: Total time managing care of this patient today ____ minutes.
[2023-04-03 12:22] VITALS: BP 170/83; PULSE 110; RESP 15; TEMP 37.2; O2SAT 99
[2023-04-03 12:27] VITALS: BP 183/88; PULSE 124; RESP 18; O2SAT 100
[2023-04-03 12:32] VITALS: BP 154/84; PULSE 110; RESP 18; O2SAT 98
[2023-04-03] MEDS: ondansetron HCL 4 MG/2 ML VIAL IVPUSH (12:34)
[2023-04-03 12:37] VITALS: BP 161/80; PULSE 104; RESP 18; TEMP 37.3; O2SAT 98
[2023-04-03 12:51] VITALS: BP 149/76; PULSE 99; RESP 18; TEMP 37.4; O2SAT 98
== END 2023-04-03 13:30 | disposition home or self-care (01) ==
PROVIDERS: PCP Physician Assistant Medical; Visit Provider Orthopaedic Surgery
PROC: (CPT 25608; principal; 2023-04-03 09:40)
DX: S59.292A Other physeal fracture of lower end of radius, left arm, initial encounter for closed fracture (principal); W18.39XA Other fall on same level, initial encounter; Y93.89 Activity, other specified; Y92.9 Unspecified place or not applicable; Y99.9 Unspecified external cause status
CPT/HCPCS: 25608; C1713; C1769; J0665; J0690; J1100; J2250; J2405; J2704; J2795; J3010

== ENCOUNTER → 2023-04-03 07:44 | Outpatient (BNV) | payer MEDICARE, MEDICAID, SELFPAY | PROVIDERS: PCP Physician Assistant Medical; Visit Provider Orthopaedic Surgery | DX: S52.572A Other intraarticular fracture of lower end of left radius, initial encounter for closed fracture (principal) | CPT/HCPCS: 25608 ==

== ENCOUNTER 2023-04-16 08:54 | Outpatient (REF) | payer MEDICARE, MEDICAID, SELFPAY ==
--- NOTE | ~2023-04-16 | XR_ITS ---
EXAMINATION: XR WRIST, LEFT CLINICAL INFORMATION: Pain. COMPARISON: Prior imaging, most recently 04/03/2023. TECHNIQUE: PA, lateral, and oblique views of the left wrist. FINDINGS: There is bony demineralization. There is stable alignment of a mildly displaced left radial distal metaphyseal fracture and a displaced ulnar styloid fracture. An intact orthopedic fixator plate and fixator screws are applied to the distal left radius. No hardware failure or loosening is seen. The proximal and distal carpal rows are intact. 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 XR/XR wrist LT min 3V IMPRESSION: There is stable alignment of Colles' fracture fragments status-post ORIF. No hardware failure or loosening is seen.
== END 2023-04-16 08:55 | disposition home or self-care (01) ==
LOC: HO.HOSX 08:54
PROVIDERS: Visit Provider Orthopaedic Surgery
DX: M25.532 Pain in left wrist (principal); S52.502D Unspecified fracture of the lower end of left radius, subsequent encounter for closed fracture with routine healing; X58.XXXD Exposure to other specified factors, subsequent encounter
CPT/HCPCS: 73110; 99212

== ENCOUNTER 2023-04-16 13:38 | Outpatient (AMB) | payer MEDICARE, MEDICAID, SELFPAY ==
--- NOTE | 2023-04-16 14:05 | A.OFFVIS_ITS ---
Intake Intake Visit Reasons: PO LT wrist ORIF 04/03/23 AR Intake Note: Danica 62 yr old female presents today for her P/O visit for her left wrist ORIF repair from 04/03/23. States she was taking Motrin for pain since she accidentally dropped her pain medication in the sink. Dressing removed and xrays updated in office. Allergies nitrofurantoin [From MACROBID] Allergy (Intermediate, Verified 04/16/23 14:12) Muscle Pain caffeine [From Cafergot] Allergy (Verified 04/16/23 14:12) Unknown ergotamine [From Cafergot] Allergy (Verified 04/16/23 14:12) Unknown From DEMEROL Allergy (Intermediate, Uncoded 04/16/23 14:12) HIVES HPI PO LT wrist ORIF 04/03/23 AR HPI Details Evelin is a 62 year old right hand dominant woman who presents S/P left distal ORIF, DOS: 04/03/23. She says she is doing very well and no longer has pain. [facility] Medical History Neck pain Syncope Hypertension Hypotension Pacemaker Surgical History (Updated 04/03/23 @ 08:13 by Isela Fernando RN) History of surgery H/O oral surgery H/O right knee surgery Social History Alcohol intake: current Alcohol intake frequency: holidays/special occasions only Patient Tobacco Use Status: Never used Tobacco Review of Systems Const All systems reviewed & are unremarkable except as noted in HPI and below Physical Exam Const General: no acute distress and alert Orientation/consciousness: patient oriented x3 Neuro General: patient oriented x3 Extrem Other: The patient was alert oriented and in no acute distress The incision is healing well with no erythema drainage or evidence of infection. Sutures removed and Steri-Strips applied She can make a fist and extend all her digits Wrist ROM: Supination ~45 degrees Pronation ~60 degrees DRUJ stable Sensation is intact Cap refill is brisk Radiographs: 3 views of the left wrist were taken and viewed by me today in clinic. They show a distal radius fracture with satisfactory fracture alignment and position of all implants Psych Appearance: grossly normal Affect: normal affect Attitude: cooperative Assessment & Plan Assessment & Plan (1) Distal radius fracture, left: Code(s): S52.502A - Unspecified fracture of the lower end of left radius, initial encounter for closed fracture Plan Assessment & Plan: 1. Left distal radius fracture, S/P ORIF DOS: 04/03/23 The patient appears to be doing well post-operatively I educated her about the post-operative course She was fitted for a velcro wrist splint, to be worn like a cast except for showering, for the next 4 weeks I explained the signs and symptoms of infection. I discussed activity modifications, she is to lift nothing heavier than a cellphone for the next 4 weeks She will perform gentle ROM exercises at home, this includes some gentle wrist ROM exercises She should avoid any underwater activities at this time She should gently massage about the incision site to reduce the risk of hypersensitivity She will follow up in 4 weeks for a ROM check, with X-rays 3V L wrist She is happy with the current plan. Scribed for Eloise Mcdonough MD by Huang Barrow, medical intern, on 04/16/23 at 2:20 PM, EST. Orders: Orders XR wrist LT min 3V Today M25.532 - Pain in left wrist Coding Level of Care Code Global (24742) Diagnoses Distal radius fracture, left S52.502A
== END 2023-04-16 14:41 | disposition home or self-care (01) ==
PROVIDERS: PCP Physician Assistant Medical; Visit Provider Orthopaedic Surgery
DX: S52.502A Unspecified fracture of the lower end of left radius, initial encounter for closed fracture (principal)
CPT/HCPCS: 99024

== ENCOUNTER 2023-05-21 09:24 | Outpatient (REF) | payer MEDICARE, MEDICAID, SELFPAY ==
--- NOTE | ~2023-05-21 | XR_ITS ---
EXAMINATION: XR WRIST, LEFT CLINICAL INFORMATION: Pain in left wrist. COMPARISON: X-ray of left wrist 04/16/2023. TECHNIQUE: PA, lateral, and oblique views of the left wrist. FINDINGS: Bones are diffusely demineralized. Redemonstration of mildly displaced fracture of the distal radial metaphysis transfixed by orthopedic fixator plate and screws. Hardware appears intact. Fracture line is still visible. There is increased bony bridging along the fracture site. Redemonstration of avulsion of the ulnar styloid. Advanced degenerative changes in the first carpometacarpal joint with joint space narrowing and hypertrophic change. XR/XR wrist LT min 3V IMPRESSION: Status post ORIF of distal radial fracture with some interval bridging callus formation.
== END 2023-05-21 09:25 | disposition home or self-care (01) ==
LOC: HO.HOSX 09:24
PROVIDERS: Visit Provider Orthopaedic Surgery
DX: M25.532 Pain in left wrist (principal); S52.502D Unspecified fracture of the lower end of left radius, subsequent encounter for closed fracture with routine healing; X58.XXXD Exposure to other specified factors, subsequent encounter; Z98.890 Other specified postprocedural states
CPT/HCPCS: 73110; 99212

== ENCOUNTER 2023-05-21 13:43 | Outpatient (AMB) | payer MEDICARE, SELFPAY ==
--- NOTE | 2023-05-21 13:50 | A.OFFVIS_ITS ---
Intake Intake Visit Reasons: PO LT wrist ORIF 04/03/23 AR Intake Note: Danica 62 yr old female presents today for her PO LT wrist ORIF 04/03/23 AR ROM check. States her ROM has improved and is doing well. At times she will have pain on her ulnar aspect of wrist. Allergies nitrofurantoin [From MACROBID] Allergy (Intermediate, Verified 05/21/23 13:54) Muscle Pain caffeine [From Cafergot] Allergy (Verified 05/21/23 13:54) Unknown ergotamine [From Cafergot] Allergy (Verified 05/21/23 13:54) Unknown From DEMEROL Allergy (Intermediate, Uncoded 05/21/23 13:54) HIVES HPI PO LT wrist ORIF 04/03/23 AR HPI Details Evelin is a 62 year old right hand dominant woman who presents S/P left distal ORIF, DOS: 04/03/23. She is here for a ROM check. She says she is doing very well and has been working on improving her ROM. She reports some occasional pain in the ulnar aspect of her wrist. She says she has been doing exercises at home, and her niece works as a physical therapist and has been helping her. She has not done any formal therapy. [facility] Medical History Neck pain Syncope Hypertension Hypotension Pacemaker Surgical History History of surgery H/O oral surgery H/O right knee surgery Social History Alcohol intake: current Alcohol intake frequency: holidays/special occasions only Patient Tobacco Use Status: Never used Tobacco Physical Exam Const General: no acute distress and alert Orientation/consciousness: patient oriented x3 Neuro General: patient oriented x3 Extrem Other: The patient was alert oriented and in no acute distress The incision is well-healed with no erythema drainage or evidence of infection. She can make a fist and extend all her digits Wrist ROM: Full, symmetrical, and painless wrist pronosupination Flexion: ~65-70degrees Extension: ~40 degrees DRUJ stable Sensation is intact Cap refill is brisk Radiographs: 3 views of the left wrist were taken and viewed by me today in clinic. They show a distal radius fracture with satisfactory fracture alignment with good evidence of interval bony healing and position of all implants. Psych Appearance: grossly normal Affect: normal affect Attitude: cooperative Assessment & Plan Assessment & Plan (1) Distal radius fracture, left: Code(s): S52.502A - Unspecified fracture of the lower end of left radius, initial encounter for closed fracture Plan Assessment & Plan: 1. Left distal radius fracture, S/P ORIF DOS: 04/03/23 The patient appears to be doing well post-operatively She is happy with the results of her surgery She will discontinue her splint at this time, she can wear it for heavy impact activities or prone to falling, such as with inclimate weather or when walking her dog for the next few weeks I discussed activity modifications, she is to begin to use her wrist for more normal daily activities. She should still avoid any heavy lifting activities for the next few weeks She will work on wrist ROM exercises at home, 20x daily I ordered OT hand therapy to work on wrist ROM and strength, particularly with extension She will follow up prn Scribed for Eloise Mcdonough MD by Huang Barrow, medical billing assistant, on 05/21/23 at 2:35 PM, EST. Orders: Orders XR wrist LT min 3V Today M25.532 - Pain in left wrist OT Evaluation and Treatment Today S52.502A - Unspecified fracture of the lower end of left radius, initial encounter for closed fracture Coding Level of Care Code Global (25785) Diagnoses Distal radius fracture, left S52.502A
== END 2023-05-21 14:49 | disposition home or self-care (01) ==
PROVIDERS: PCP Physician Assistant Medical; Visit Provider Orthopaedic Surgery
DX: S52.502A Unspecified fracture of the lower end of left radius, initial encounter for closed fracture (principal)
CPT/HCPCS: 99024

== ENCOUNTER 2023-11-13 10:52 | Outpatient (AMB) | payer MEDICARE, MEDICAID, SELFPAY ==
--- NOTE | 2023-11-13 11:19 | MHC.OFFWIV ---
Intake Vital Signs 11/13/23 11:20 Height 5 ft 4 in Weight 128 lb BMI 22.0 BP 126/82 Blood Pressure Location Rt brachial Position Sitting Pulse 93 Pulse Source Pulse Oximeter Temp 98.1 F Temp Source Oral Pulse Oximetry (%) 98 Oxygen Delivery Method Room Air Intake Visit Reasons: EP sinus pressure Intake Note: pt c/o sinus pressure/headache, teeth pain. Started 4 weeks ago. Patient Tobacco Use Status: Never used Tobacco Allergies nitrofurantoin [From MACROBID] Allergy (Intermediate, Verified 11/13/23 11:19) Muscle Pain caffeine [From Cafergot] Allergy (Verified 11/13/23 11:19) Unknown ergotamine [From Cafergot] Allergy (Verified 11/13/23 11:19) Unknown From DEMEROL Allergy (Intermediate, Uncoded 11/13/23 11:19) HIVES Do you need a note to return to daycare/school/sports/work: No HPI HPI Comments History of Present Illness Details Patient is a 62-year-old female complaining of 4 weeks of sinus pressure, headaches teeth pain along with green mucus when she blows her nose. She denies any fevers, shortness of breath, nausea, vomiting or diarrhea. She has been using Sudafed, Flonase and allergy medications without any improvement. [facility] Medical History Neck pain Syncope Hypertension Hypotension Pacemaker Surgical History History of surgery H/O oral surgery H/O right knee surgery Social History Alcohol intake: current Alcohol intake frequency: holidays/special occasions only Patient Tobacco Use Status: Never used Tobacco Review of Systems Const All systems reviewed & are unremarkable except as noted in HPI and below Physical Exam Vital Signs: Last Vital Signs Temp 98.1 F 11/13/23 11:20 Pulse 93 11/13/23 11:20 BP 126/82 11/13/23 11:20 Pulse Ox 98 11/13/23 11:20 Oxygen Delivery Method Room Air 11/13/23 11:20 BMI result Body Mass Index 22.0 Const General: cooperative, healthy appearing, comfortable and no acute distress Orientation/consciousness: patient oriented x3 Limitations: no limitations HEENT Head: Yes normal to inspection Ears: hearing grossly normal bilaterally, external ears normal and TM's normal bilaterally General nose exam: Normal external nose present, Normal nares present and No nasal discharge present Face and sinus: Yes normal facial exam and Yes sinus tenderness Mouth: Normal oral and palatal mucosa present and moist mucous membranes Throat: Yes tonsils normal, Yes uvula midline and Yes posterior oropharynx abnormal (Erythema) Eyes General: appearance normal, both eyes and all related structures Neck Neck: Yes normal visual inspection Resp Effort & Inspection: normal respiratory effort, able to speak in complete sentences, no respiratory distress, not tachypneic, no tripod positioning and no use of accessory muscles Skin General skin exam: no rashes or lesions noted Neuro General: patient oriented x3 Extrem General: Yes normal to inspection and Yes no clubbing, cyanosis or edema Assessment & Plan Assessment & Plan (1) Sinusitis, acute ethmoidal: Code(s): J01.20 - Acute ethmoidal sinusitis, unspecified Qualifiers: Recurrence: non-recurrent Qualified Code(s): J01.20 - Acute ethmoidal sinusitis, unspecified Plan: As it has been 4 weeks and patient is not getting better, I will prescribe Augmentin and a burst of prednisone to help her with the head pressure. Recommended continuing all the other medication she is taking [id number] to help her with her symptoms. Plan see above Medications: New prednisone 20 mg PO DAILY 5 tabs 0RF amoxicillin-pot clavulanate 875-125 mg 1 tab PO Q12H 10 tabs 0RF Coding Level of Care Code New Pt Level 3 (41682) Diagnoses Acute non-recurrent ethmoidal sinusitis J01.20 Recurrence: non-recurrent
[2023-11-13 11:20] VITALS: BP 126/82; PULSE 93; TEMP 36.7; O2SAT 98; BMI 22.0
== END 2023-11-13 12:41 | disposition home or self-care (01) ==
PROVIDERS: PCP Physician Assistant Medical; Visit Provider Physician Assistant
DX: J01.20 Acute ethmoidal sinusitis, unspecified (principal)

== ENCOUNTER → 2023-11-13 10:52 | Outpatient (BNVA) | payer MEDICARE, MEDICAID, SELFPAY | PROVIDERS: PCP Physician Assistant Medical; Visit Provider Physician Assistant | DX: J01.20 Acute ethmoidal sinusitis, unspecified (principal) | CPT/HCPCS: 99202 ==

== ENCOUNTER 2023-12-16 11:13 | Outpatient (AMB) | payer MEDICARE, MEDICAID, SELFPAY ==
[2023-12-16 11:37] VITALS: BP 118/82; PULSE 96; O2SAT 97; BMI 21.8
--- NOTE | 2023-12-16 11:37 | MHC.OFFWIV ---
Intake Vital Signs 12/16/23 11:37 Height 5 ft 4 in Weight 127 lb 3 oz BMI 21.8 BP 118/82 Blood Pressure Location Lt brachial Position Sitting Pulse 96 Pulse Source Pulse Oximeter Pulse Oximetry (%) 97 Oxygen Delivery Method Room Air Intake Visit Reasons: EP ? UTI Patient Tobacco Use Status: Never used Tobacco Allergies nitrofurantoin [From MACROBID] Allergy (Intermediate, Verified 12/16/23 11:43) Muscle Pain caffeine [From Cafergot] Allergy (Verified 12/16/23 11:43) Unknown ergotamine [From Cafergot] Allergy (Verified 12/16/23 11:43) Unknown From DEMEROL Allergy (Intermediate, Uncoded 11/13/23 11:19) HIVES Medication List - Last Reconciled 12/16/23 by Max Guadarrama MD albuterol sulfate 90 mcg/actuation 2 puffs inhalation Q6H PRN amlodipine 5 mg PO DAILY kwfhvjkhqt-zfputzjjohjao-gonr 50-300-40 mg 1 PO Q6H PRN fexofenadine (Suze Allergy) 60 mg PO DAILY gabapentin 600 mg PO BID ibuprofen 600 mg PO Q6-8H PRN linaclotide (Linzess) 290 mcg PO DAILY meloxicam 15 mg PO DAILY PRN rimegepant (Nurtec ODT) 75 mg PO DAILY PRN tacrolimus 0.1% 1 appl topical BID tizanidine 4 mg PO TID venlafaxine 75 mg PO DAILY venlafaxine ER 150 mg PO DAILY Do you need a note to return to daycare/school/sports/work: No HPI EP ? UTI HPI Details Patient is 63-year-old female came in today to be evaluated for possible urinary tract infection Symptoms started yesterday, and got worse this morning Patient says that she noticed some blood in her urine this morning as well There is no fever no chills nausea no vomiting no back pain She is feeling uncomfortable just above the pubic area Last UTI was many years ago She had colonoscopy before it started. She is allergic to Macrobid, I have sent Levaquin 500 mg once a day for 5 days Pyridium script sent as well Patient was encouraged to drink lots of fluids. PFSH Medical History Neck pain Syncope Hypertension Hypotension Pacemaker Surgical History History of surgery H/O oral surgery H/O right knee surgery Social History Alcohol intake: current Alcohol intake frequency: holidays/special occasions only Patient Tobacco Use Status: Never used Tobacco Review of Systems Const All systems reviewed & are unremarkable except as noted in HPI and below Physical Exam Vital Signs: Last Vital Signs BP 118/82 12/16/23 11:37 BMI result Body Mass Index 21.8 Const General: no acute distress Orientation/consciousness: patient oriented x3 Eyes General: appearance normal, both eyes and all related structures Resp Effort & Inspection: normal respiratory effort and able to speak in complete sentences Neuro General: patient oriented x3 Psych Mental Status: mental status grossly normal Assessment & Plan Assessment & Plan (1) Acute cystitis with hematuria: Code(s): N30.01 - Acute cystitis with hematuria Plan Patient is 63-year-old female came in today to be evaluated for possible urinary tract infection Symptoms started yesterday, and got worse this morning Patient says that she noticed some blood in her urine this morning as well There is no fever no chills nausea no vomiting no back pain She is feeling uncomfortable just above the pubic area Last UTI was many years ago She had colonoscopy before it started. She is allergic to Macrobid, I have sent Levaquin 500 mg once a day for 5 days Pyridium script sent as well Patient was encouraged to drink lots of fluids. Patient was notified that we do not have enough specimen to send it for culture Medications: New levofloxacin 500 mg PO DAILY 5 days 5 tabs 0RF phenazopyridine (Pyridium) 200 mg PO TID 2 days PRN 6 tabs 0RF pain levofloxacin 500 mg PO DAILY 5 days 5 tabs 0RF Coding Level of Care Code Est Pt Level 3 (31032) Diagnoses Acute cystitis with hematuria N30.01
== END 2023-12-16 12:03 | disposition home or self-care (01) ==
PROVIDERS: PCP Physician Assistant Medical; Visit Provider Internal Medicine
DX: N30.01 Acute cystitis with hematuria (principal)

== ENCOUNTER → 2023-12-16 11:13 | Outpatient (BNVA) | payer MEDICARE, MEDICAID, SELFPAY | PROVIDERS: PCP Physician Assistant Medical; Visit Provider Internal Medicine | DX: N30.01 Acute cystitis with hematuria (principal) | CPT/HCPCS: 99212 ==

== ENCOUNTER 2024-03-23 10:02 | Outpatient (AMB) | payer MEDICARE, MEDICAID, SELFPAY ==
--- NOTE | 2024-03-23 13:47 | MHC.OFFWIV ---
Intake Vital Signs 03/23/24 13:50 Weight 128 lb BP 140/90 H Blood Pressure Location Rt brachial Position Sitting Pulse 92 Pulse Source Pulse Oximeter Pulse Oximetry (%) 98 Oxygen Delivery Method Room Air Intake Visit Reasons: EP_rt eye pain Intake Note: Patient here for right eye pain/redness for the past 2 days. Patient Tobacco Use Status: Never used Tobacco Allergies nitrofurantoin [From MACROBID] Allergy (Intermediate, Verified 03/23/24 13:50) Muscle Pain caffeine [From Cafergot] Allergy (Verified 03/23/24 13:50) Unknown ergotamine [From Cafergot] Allergy (Verified 03/23/24 13:50) Unknown From DEMEROL Allergy (Intermediate, Uncoded 03/23/24 13:50) HIVES Do you need a note to return to daycare/school/sports/work: No HPI HPI Comments History of Present Illness Details This is a 63-year-old female presenting for evaluation of right eye pain and redness that she has had since Friday evening. Patient wears contact lenses at baseline. On Friday evening she felt there was a foreign body sensation in her right eye. Patient states that she rubbed her eye and then flushed her eye out in the shower. Patient denies having any visual changes but endorses irritation of her right eye since that time. Patient has not used any [id number] medication for treatment of her discomfort patient is not currently wearing her contact lenses. [facility] Medical History Neck pain Syncope Hypertension Hypotension Pacemaker Surgical History History of surgery H/O oral surgery H/O right knee surgery Social History Alcohol intake: current Alcohol intake frequency: holidays/special occasions only Patient Tobacco Use Status: Never used Tobacco Review of Systems Const All systems reviewed & are unremarkable except as noted in HPI and below Reports no additional complaints and Denies headache(s) Eyes Denies change in vision, Denies diplopia, Reports eye discharge (Tearing), Reports irritation, Denies itchy eyes, Denies seeing flashes, Denies photophobia and Reports other (Foreign body sensation right eye) ENT Reports no additional complaints and Denies headache(s) Card Reports no additional complaints Resp Reports no additional complaints GI Reports no additional complaints Reports no additional complaints Musc Reports no additional complaints Skin/Breast Reports system reviewed and no additional complaints, except as documented Neuro Reports no additional complaints and Denies headache(s) Psych Reports no additional complaints Endo Reports no additional complaints Darek/Lymph Reports no additional complaints Aller/Immun Reports no additional complaints and Denies itchy eyes Physical Exam Vital Signs: Last Vital Signs Pulse 92 03/23/24 13:50 BP 140/90 H 03/23/24 13:50 Pulse Ox 98 03/23/24 13:50 Oxygen Delivery Method Room Air 03/23/24 13:50 Const General: cooperative, healthy appearing, comfortable, no acute distress, well developed, alert, awake and Physically active Nutritional Appearance: average body habitus Orientation/consciousness: patient oriented x3 Limitations: no limitations Eyes Other: There is no evidence of a foreign body with fluorescein staining. There is however a corneal abrasion noted on the medial aspect of the right cornea. Visual Sow: normal visual sow by confrontation Alignment and Position: alignment normal Periorbital: periorbital findings normal Eyelids: Yes eyelids normal Conjunctivae: conjunctival abnormal right conjunctival injection and discharge (clear discharge); without subconjunctival hemmorhages EOM: EOMs intact bilaterally Direct Ophthalmoscopy: normal light reflex, no photophobia and No photophobia Neuro General: patient oriented x3 Psych Appearance: grossly normal Mental Status: mental status grossly normal Insight: Good insight present (Psych) Judgement: Good judgement present (Psych) Assessment & Plan Assessment & Plan (1) Right corneal abrasion: Comment: No evidence of a foreign body, there is however a corneal abrasion noted on examination utilizing fluorescein stain. 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 Medications: New erythromycin 0.5 inches ophthalmic-Right QID 3.5 grams 0RF Coding Level of Care Code Est Pt Level 4 (18233) Diagnoses Abrasion of right cornea, initial encounter S05.01XA Encounter type: initial encounter Time Spent (min) 20
[2024-03-23 13:50] VITALS: BP 140/90; PULSE 92; O2SAT 98
== END 2024-03-23 14:23 | disposition home or self-care (01) ==
PROVIDERS: PCP Physician Assistant Medical; Visit Provider Physician Assistant
DX: S05.01XA Injury of conjunctiva and corneal abrasion without foreign body, right eye, initial encounter (principal)

== ENCOUNTER 2024-04-01 08:09 | Emergency (ER) | payer MEDICARE, MEDICAID, SELFPAY ==
--- NOTE | ~2024-04-01 | CT_ITS ---
EXAMINATION: CT HEAD WITHOUT CONTRAST CLINICAL INFORMATION: fall w/ head strike COMPARISON: August 30, 2020. TECHNIQUE: Contiguous axial imaging was performed from the skull base to vertex without intravenous administration of contrast. This CT examination was performed using dose optimization techniques as appropriate, variously including the following: *Automated exposure control *Adjustment of mA and/or kV according to patient size (this includes techniques or standardized protocols for targeted exams where dose is matched to indication/reason for exam; i.e. extremities or head) *Use of iterative reconstruction technique DLP: 672.41 mGy-cm FINDINGS: Limited by patient's motion artifact. Bony calvarium is intact. Skull base is intact. No acute intracranial hemorrhage, mass effect, midline shift, hydrocephalus or herniation. Valles-white matter differentiation is normal. Posterior cranial fossa contents demonstrated no acute intracranial hemorrhage or mass effect. Calcified plaques in the V4 segments of the vertebral arteries and cavernous supracavernous segments both ICAs. No hematoma in the intraconal or the extraconal compartments of the orbits. No gross air-fluid levels in the included paranasal sinuses. Tympanic cavities and mastoid cells are aerated. Questionable high riding right internal jugular bulb. CT/CT head/brain wo IV con IMPRESSION: No acute fracture, bony calvarium. No acute intracranial hemorrhage. Stable brain. Electronically signed by: Renato Shafer MD 04/01/2024 09:21 AM MARA
--- NOTE | ~2024-04-01 | CT_ITS ---
EXAMINATION: CT CERVICAL SPINE WITHOUT CONTRAST CLINICAL INFORMATION: Status post fall. COMPARISON: None available. TECHNIQUE: Diffuse axial images through the cervical spine using 3 mm collimation with bone and soft tissue algorithm. Sagittal and coronal reformatted images acquired. This CT examination was performed using dose optimization techniques as appropriate, variously including the following: *Automated exposure control *Adjustment of mA and/or kV according to patient size (this includes techniques or standardized protocols for targeted exams where dose is matched to indication/reason for exam; i.e. extremities or head) *Use of iterative reconstruction technique. DLP: 287.26 mGy centimeter. FINDINGS: Limited by patient's motion artifact. Marginal osteophyte formation and endplate sclerosis and irregularity with decreased intervertebral disc height at C5-6 and C6-7 levels. Bilateral facet joint hypertrophy from C3-4 to C6-7 levels more conspicuous at C3-4. Probable bony island on the left facet of C2. 1 mm anterolisthesis C4-5 and C7-T1. 1 mm retrolisthesis at C5-6. Craniocervical junction is intact. C1 is intact. C2 is intact. C3 is intact. C4 is intact. C5 is intact. C6 is intact. C7 is intact. No gross prevertebral compartment hematoma. Tympanic cavities and mastoid cells are aerated. Electrode leads no fully included in the left thoracic inlet. Probable high riding right internal jugular bulb. CT/CT cervical spine wo IV con IMPRESSION: Multilevel cervical spondylosis more conspicuous at C5-6 and to a lesser extent C4-5 and C6-7 levels without acute fracture or trauma-related listhesis. Fleischner guidelines were followed. Electronically signed by: Renato Shafer MD 04/01/2024 09:26 AM MARA
[2024-04-01 08:16] VITALS: BP 154/92; PULSE 85; RESP 20; TEMP 36.9; O2SAT 100; BMI 21.5
--- NOTE | 2024-04-01 08:32 | ED_ITS ---
HPI - Fall General Chief Complaint: Fall Stated Complaint: FALL,+HS,LAC,-LOC,+COLLAR,DIZZY PER EMS Time Seen by Provider: 04/01/24 08:12 Source: patient and EMS Mode of arrival: EMS Limitations: no limitations History of Present Illness ED Provider: Sharonda Ricketts PA-C HPI Narrative: 63 yo female with history of asthma presenting to the ER via EMS for evaluation of fall this morning when she was out walking her dog and slipped on ice. She states she slipped, fell back onto her bottom and then fell back and hit the back of her head. She did not lose consciousness. She is not on anticoagulation. She reports posterior headache that radiates up to the top of her head. She also reports neck pain and arrives a C-collar. She denies any back pain, abdominal pain, chest pain, extremity pain. She reports some dizziness when she moves her head since the fall. She had no dizziness or lightheadedness prior to the fall. EMS reports she has a small laceration to the back of her head with bleeding controlled on arrival. MD complaint: fall Fall from: standing Fall witnessed: no Place fall occurred: street Loss of consciousness: none Prolonged down time: no Symptoms prior to fall: none Context: tripped/slipped Location of injury: head and neck Severity: moderate Severity scale (1-10): 6 Quality: aching Associated symptoms (after fall): headache and neck pain Related Data Home Medications ?Medication ?Instructions ?Recorded ?Confirmed albuterol sulfate 90 mcg/actuation 2 puff inhalation Q6H PRN SOB 04/03/23 12/16/23 aerosol inhaler amlodipine 5 mg tablet 5 mg PO DAILY 04/03/23 12/16/23 ybhcfbwrev-tbbrrrqunpalt-ovysrdoh 1 PO Q6H PRN pain 04/03/23 12/16/23 50 mg-300 mg-40 mg capsule gabapentin 600 mg tablet 600 mg PO BID 04/03/23 12/16/23 linaclotide 290 mcg capsule 290 mcg PO DAILY 04/03/23 12/16/23 (Linzess) meloxicam 15 mg tablet 15 mg PO DAILY PRN pain 04/03/23 12/16/23 rimegepant 75 mg disintegrating 75 mg PO DAILY PRN migraine 04/03/23 12/16/23 tablet (Nurtec ODT) tizanidine 2 mg tablet 4 mg PO TID 04/03/23 12/16/23 venlafaxine 150 mg tablet,extended 150 mg PO DAILY 04/03/23 12/16/23 release 24 hr fexofenadine 60 mg tablet (Suze 60 mg PO DAILY 11/13/23 12/16/23 Allergy) tacrolimus 0.1 % topical ointment 1 appl topical BID 11/13/23 12/16/23 venlafaxine 75 mg tablet 75 mg PO DAILY 11/13/23 12/16/23 Previous Rx's ?Medication ?Instructions ?Recorded ibuprofen 600 mg tablet 600 mg PO Q6-8H PRN pain #40 tabs 04/03/23 erythromycin 5 mg/gram (0.5 %) eye 0.5 inch ophthalmic-Right QID #3.5 03/23/24 ointment grams Allergies Allergy/AdvReac Type Severity Reaction Status Date / Time nitrofurantoin Allergy Intermediate Muscle Pain Verified 04/01/24 08:18 [From MACROBID] caffeine [From Cafergot] Allergy Unknown Verified 04/01/24 08:18 ergotamine [From Cafergot] Allergy Unknown Verified 04/01/24 08:18 From DEMEROL Allergy Intermediate HIVES Uncoded 04/01/24 08:18 Review of Systems Review of Systems: Yes all other systems are reviewed and are negative [facility] Past Medical History Medical History Neck pain Syncope Hypertension Hypotension Pacemaker Surgical History History of surgery H/O oral surgery H/O right knee surgery Social History Social History Alcohol intake: current Alcohol intake frequency: holidays/special occasions only Patient Tobacco Use Status: Never used Tobacco Advance Directives: No Advance Directives Information Provided: Yes Do you have a plan to hurt others: No Plan Physical Exam Vital Signs: Vital Signs: Last Vital Signs Temp 99 F 04/01/24 10:33 Pulse 90 04/01/24 10:33 Resp 16 04/01/24 10:33 BP 171/87 H 04/01/24 10:33 Pulse Ox 100 04/01/24 10:33 O2 Del Method Room Air 04/01/24 10:33 BMI result Body Mass Index 21.5 Appearance: Alert. Oriented X3. No acute distress. Head: normocephalic, matted hair on the posterior scalp with a small amount of dried blood, no active bleeding. Eyes: Pupils equal, round and reactive to light. ENT: Pharynx normal. No tonsillar swelling or exudate. Neck: in cervical collar CVS: Normal heart rate and rhythm. Pulses normal. Respiratory: No respiratory distress. Breath sounds normal. Abdomen: Soft and nontender. +BS x4 Skin: Skin warm and dry. Normal skin color. Normal skin turgor. No rashes. Extremities: No lower extremity edema. No joint swelling. Neuro/psych: Oriented X 3. No motor deficit. No sensory deficit. CN II-XII intact. Normal speech and cognition. Medications Administered Discontinued Medications Generic Name Dose Route Start Last Admin Trade Name Freq PRN Reason Stop Dose Admin Acetaminophen 975 mg 04/01/24 10:11 04/01/24 10:41 Acetaminophen 325 Mg Tablet PO 04/01/24 10:12 975 mg ONCE ONE Administration Diphtheria/Tetanus/Acell Pertussis 0.5 ml 04/01/24 10:11 04/01/24 10:41 Diphth,Pertus(Acell),Tet Adult 0.5 Ml Syringe IM 04/01/24 10:12 0.5 ml .ONCE ONE Administration Procedures Laceration Laceration 1: Site: scalp Size (cm): 1.5 Description: linear Depth: simple, single layer Pre-repair: irrigated extensively Skin layer closed with: other (2 aye) Medical Decision Making Medical Decision Making MDM Narrative: 63 yo female with history of asthma presenting s/p fall w/ head strike. small lac on the posterior scalp. not on anticoagulation and no LOC. neuro exam nonfocal. CT scans of her head and cervical spines did not show any acute traumatic injuries. C-collar cleared, no midine tenderness. soft tissue tenderness laterally and upper trapezius muscles. FROM. 2 aye placed to posterior scalp given tylenol and tdap. headache improved. dizziness is minor w/ movement. she feels good enough to go home. we discussed head injuries and return precautions. stable for d/c home. Differential Diagnosis Differential Diagnoses: The differential diagnosis associated with the presentation includes concussion, SDH, SAH, scalp laceration, cervical spinal fracture, head injury Admission/Observation Consideration of admission/observation: Escalation of care including admission/observation considered Independent Interpretation I performed an independent interpretation of an: CT Scan Interpretation: CT head without acute bleed or edema Radiology Impression Discussion of test interpretation with radiology: I have reviewed the radiologist's reading. Independent Historian Clinical information obtained from an independent historian. History obtained from or confirmed by: Spouse and EMS External Record Review External record reviewed: Prior outpatient labs Prescription Management I considered prescription management with: Pain Medication Critical Care Time Critical Care Time Critical Care Time: No Discharge Plan Discharge Clinical Impression: Head injury Patient Disposition: Home, Self-Care Instructions: Head Injury (ED) Additional Instructions: Your CT scans today did not show any acute injuries. 2 aye were used to close the small laceration on the back of your head. You will need your aye out in 7-10 days. See you doctor for this or come back to the ER and we will remove them. Do not get wet for 24 hours, after that you can briefly wash with soap and water then pat dry. Take tylenol as needed for pain. Apply ice for 20 minutes at a time several times per day Rest, no strenuous activity. Avoid prolonged screen time. Rest your brain. Follow up with your doctor. If you develop new or worsening symptoms call 911 or come back to the ER for further evaluation. Prescriptions: No Action gabapentin 600 mg tablet 600 mg PO BID tizanidine 2 mg tablet 4 mg PO TID meloxicam 15 mg tablet 15 mg PO DAILY PRN (Reason: pain) amlodipine 5 mg tablet 5 mg PO DAILY albuterol sulfate 90 mcg/actuation HFA aerosol inhaler 2 puff INHALATION Q6H PRN (Reason: SOB) venlafaxine 150 mg tablet extended release 24hr 150 mg PO DAILY auildgvdrq-swozdmxibiduw-zvpk 50-300-40 mg capsule 1 PO Q6H PRN (Reason: pain) Linzess 290 mcg capsule 290 mcg PO DAILY Nurtec ODT 75 mg tablet,disintegrating 75 mg PO DAILY PRN (Reason: migraine) ibuprofen 600 mg tablet 600 mg PO Q6-8H PRN (Reason: pain) Qty: 40 0RF erythromycin 5 mg/gram (0.5 %) ointment 0.5 inch ophthalmic-Right QID Qty: 3.5 0RF tacrolimus 0.1 % ointment 1 appl topical BID venlafaxine 75 mg tablet 75 mg PO DAILY fexofenadine [Suze Allergy] 60 mg tablet 60 mg PO DAILY Discharge Date/Time: 04/01/24 11:23 Print Language: Frisian
--- OUTSIDE RECORDS SUMMARY | 2024-04-01 08:40 | XMS_ITS | Encounter Summary ---
Author Organization Formerly [facility] Address [address] [place], [place] [id number] Care Team Providers Care Product Manager Medical Device Name Role Phone Tamika Barba PA-C Primary Care Provi tony Rashawn Coffey MD Unavailable [phone] Valerio Wilson MD Unavailable [phone] Encounter Details Date Type Department Care Team (Late st Contact Info) Description 08/27/2023 Scanned Document [address] [address] Tamika Barba PA-C [address] [place] [address] Social History Tobacco Use Types Packs/Day Years Used Date Smoking Tobacco: Never Smokeless Tobacco: Never Alcohol Use Standard Drinks/Week Comments Yes 0 (1 standard drink = 0.6 oz pur e alcohol) PHQ-2 Answer Date Recorded PHQ-2 Total Score 1 04/22/2023 Sex and Gender Information Value Date Recorded Sex Assigned at Female 03/25/2023 2:40 PM EST Gender Identity Not on file Sexual Orientation Not on file documented as of this encounter Plan of Treatment Not on file documented as of this encounter Visit Diagnoses Not on filedocumented in this encounter Care Teams Product Manager Medical Device Relationship Specialty Start Date End Date Tamika Barba PA-C [address] [place] [address] PCP - General Internal Medicine 04/22/23 Rashawn Coffey MD [address] [address] Referring Provider Gastroenterology 02/07/24 Valerio Wilson MD [facility] [place] [address] Referring Provider Rheumatology 02/07/24 documented as of this encounter
--- OUTSIDE RECORDS SUMMARY | 2024-04-01 08:40 | XMS_ITS | Encounter Summary ---
Author Organization Formerly [facility] Address [address] [place] [id number] Care Team Providers Care Feed Handler Name Role Phone Tamika Barba PA-C Primary Care Provi tony Rashawn Coffey MD Unavailable Valerio Wilson MD Unavailable [phone] Encounter Details Date Type Department Care Team (Late st Contact Info) Description 06/27/2023 Scanned Document [facility] ORTHO SURGERY SCAN Orthopedic Surgery, Scan Social History Tobacco Use Types Packs/Day Years [...] on filedocumented in this encounter Care Teams Feed Handler Relationship Specialty Start Date End Date Tamika Barba PA-C [address] [place] [address] PCP - General Internal Medicine 04/22/23 Rashawn Coffey MD [address] [address] Referring Provider Gastroenterology 02/07/24 Valerio Wilson MD [address] [place] [address] Referring Provider Rheumatology 02/07/24 documented as of this encounter
--- OUTSIDE RECORDS SUMMARY | 2024-04-01 08:40 | XMS_ITS | Clinical Summary ---
Author Organization [facility] Address [address] [place] [address] Care Team Providers Care Polysilicon Preparation Worker Name Role Phone Tamika Barba PA-C Primary Care Provi tony Rashawn Coffey MD Unavailable [phone] Valerio Wilson MD Unavailable [phone] Allergies Active Allergy Reactions Criticality Noted Date Comments Meperidine Unknown/Patient and Family Unable to Define Medium 04/27/2023 Nitrofurantoin Myalgia/Myositis/Arthralgia/Arthritis Low 04/22/2023 Medications Medication Sig Dispensed Refills Start Date End Date Status gabapentin (NEURONTIN) 600 MG tablet Take 1 tablet (600 mg total) by mouth 2 (two) times a day. 03/13/2023 Active Linzess 290 MCG Cap capsule Take 1 capsule (290 mcg total) by mouth daily. 03/28/2023 Active meloxicam (MOBIC) 15 MG tablet 1 tablet (15 mg total). 03/03/2023 Active Nurtec 75 MG disintegrating tablet Take 1 tablet (75 mg total) by mouth daily as needed. 02/18/2023 Active tiZANidine (ZANAFLEX) 2 MG tablet Take 2 tablets (4 mg total) by mouth 3 (three) times a day. 02/18/2023 Active amLODIPine (NORVASC) 5 MG tabletIndications:Sol santi hypertension Take 1 tablet (5 mg total) by mouth daily. 90 tablet 3 04/22/2023 Active venlafaxine (EFFEXOR) 75 MG tabletIndications:Anx iety,Recurrent major depressive disorder, in partial remission Take 1 tablet (75 mg total) by mouth daily. 90 tablet 3 04/22/2023 Active venlafaxine (EFFEXOR-XR) 150 MG 24 hr capsuleIndications:An xiety,Recurrent major depressive disorder, in partial remission Take 1 capsule (150 mg total) by mouth daily. 90 capsule 3 01/28/2024 Active diclofenac enteric coated (VOLTAREN) 75 MG EC tablet Take 1 tablet (75 mg total) by mouth. Administer with food avoid GI upset. Active Active Problems Problem Noted Date Diagnosed Date Iron deficiency anemia 04/27/2023 Cavernous hemangioma of cerebellum 04/27/2023 Celiac disease 04/27/2023 Cervical spondylosis 04/27/2023 Sick sinus syndrome 04/27/2023 Pacemaker 04/27/2023 Primary hypertension 04/22/2023 Other constipation 04/22/2023 Neck pain 04/22/2023 Primary osteoarthritis involving multiple joints 04/22/2023 Chronic migraine with aura 04/22/2023 Anxiety 04/22/2023 Recurrent major depressive disorder, in partial remission 04/22/2023 Encounters Date Type Department Care Team Description 02/07/2024 1:00 PM EST Telemedicine [facility] [place] [id number] [address] [address] Cathy Farrell, CARD PROCESSING CLERK Annual wellness visit (Primary Dx) 01/25/[address] [address] Tamika Barba PA-C Anxiety; Recurrent major depressive disorder, in partial remission (HCC) from Last 3 Months Immunizations Name Administration Dates Next Due DTaP 03/31/2012 Pneumococcal Polysaccharide 23-Valent 10/02/2010 Family History Medical History Relation Name Comments Alcohol abuse Father Cervical cancer Mother Relation Name Status Comments Father Mother Social History Tobacco Use Types Packs/Day Years Used Date Smoking Tobacco: Never Smokeless Tobacco: Never Tobacco Cessation:Counseling Given: Not Answered Alcohol Use Standard Drinks/Week Comments Yes 0 (1 standard drink = 0.6 oz pur e alcohol) AUDIT-C Answer Date Recorded Q1: How often do you have a drink containing alc ohol? Monthly or less 02/07/2024 Q2: How many drinks containi ng alcohol do you have on a typical day when you are drinking? 1 or 2 02/07/2024 Q3: How often do you have si x or more drinks on one occasion? Never 02/07/2024 PHQ-2 Answer Date Recorded PHQ-2 Total Score 2 02/06/2024 Sex and Gender Information Value Date Recorded Sex Assigned at Female 03/25/2023 2:40 PM EST Gender Identity Not on file Sexual Orientation Not on file Last Filed Vital Signs Vital Sign Reading Time Taken Comments Blood Pressure 122/76 04/22/2023 11:11 AM EST Pulse 86 04/22/2023 11:11 AM EST Temperature 36.2 ??C (97.2 ??F) 04/22/2023 11:[address] Respiratory Rate 17 04/22/2023 11:11 AM EST Oxygen Saturation 98% 04/22/2023 11:11 AM EST Inhaled Oxygen Concentration - - Weight 56.7 kg (125 lb) 02/07/2024 12:39 PM EST Height 165.1 cm (5' 5 ) 02/07/2024 12:39 PM EST Body Mass Index 20.8 02/07/2024 12:39 PM EST Plan of Treatment Health Maintenance Due Date Last Done Comments Hepatitis C Virus Screening 1961 HIV Screening 1974 Physical 12/10/1979 Mammogram 2001 Pneumococcal Vaccines 50+ (2 of 2 - PCV) 12/10/2011 10/02/2010 Zoster (Shingles) Vaccine (1 of 2) 12/10/2011 DTaP/Tdap/Td Vaccines (2 - Tdap) 03/31/2022 03/31/2012 Influenza Vaccine 09/25/2023 COVID-19 Vaccine (2 - 2023-2 5 season) 2023 06/05/2020 Annual Wellness Visit 02/07/2025 02/07/2024 , 02/07/2024 Pap Smear (Ages 21-65) 03/04/2025 3 (Previously Completed) Colonoscopy 12/01/2030 12/01/2020 (Previously Completed) RSV Vaccine 60 years and older and Patients (1 - 1-dose 75+ series) 2036 Pneumococcal Vaccine: Pediatric (0-5 Years) and At-Risk Patients (6 to 49 Years) Aged Out 10/02/2010 No longer eligible b ased on patient's age to complete this topic Hepatitis B Vaccines Aged Out No long er eligible based on patient's age to complete this topic Care Teams Polysilicon Preparation Worker Relationship Specialty Start Date End Date Tamika Barba PA-C [address] [place] [address] PCP - General Internal Medicine 04/22/23 Rashawn Coffey MD [address] [address] Referring Provider Gastroenterology 02/07/24 Valerio Wilson MD [address] [place] [address] Referring Provider Rheumatology 02/07/24
--- OUTSIDE RECORDS SUMMARY | 2024-04-01 08:41 | XMS_ITS | Encounter Summary ---
Author Organization [place] [id number] Care Team Providers Care Speech Instructor Name Role Phone Tamika Barba PA-C Primary Care Provi tony Rashawn Coffey MD Unavailable [phone] Valerio Wilson MD Unavailable [phone] Encounter Details Date Type Department Care Team (Late st Contact Info) Description 04/24/2023 Scanned Document [address] [place] [id number] Primary Care, Scan Social History Tobacco Use Types Packs/Day [...] on filedocumented in this encounter Care Teams Speech Instructor Relationship Specialty Start Date End Date Tamika Barba PA-C [address] [place] [address] PCP - General Internal Medicine 04/22/23 Rashawn Coffey MD [address] [address] Referring Provider Gastroenterology 02/07/24 Valerio Wilosn MD [address] [place] [address] Referring Provider Rheumatology 02/07/24 documented as of this encounter
[2024-04-01 10:33] VITALS: BP 171/87; PULSE 90; RESP 16; TEMP 37.2; O2SAT 100
[2024-04-01] MEDS: Acetaminophen 325 MG TABLET 975 MG PO (10:41)
[2024-04-01] MEDS: Diphth,Pertus(ACell),Tet Adult 0.5 ML SYRINGE IM (10:41)
== END 2024-04-01 11:23 | disposition home or self-care (01) ==
PROVIDERS: Emergency Provider Emergency Medicine; PCP Physician Assistant Medical
DX: S01.01XA Laceration without foreign body of scalp, initial encounter (principal); R51.9 Headache, unspecified; M54.2 Cervicalgia; W18.2XXA Fall in (into) shower or empty bathtub, initial encounter; Y93.K1 Activity, walking an animal; Y92.480 Sidewalk as the place of occurrence of the external cause; Y99.8 Other external cause status; Z23 Encounter for immunization
CPT/HCPCS: 12001; 70450; 72125; 90471; 90715; 99284

== ENCOUNTER → 2024-04-01 08:14 | Outpatient (BNV) | payer MEDICARE, MEDICAID, SELFPAY | PROVIDERS: Emergency Provider Emergency Medicine; PCP Physician Assistant Medical; Visit Provider Radiology Diagnostic Radiology | DX: M50.120 Mid-cervical disc disorder, unspecified level (principal); S00.93XA Contusion of unspecified part of head, initial encounter | CPT/HCPCS: 70450; 72125 ==

== ENCOUNTER 2024-04-09 14:29 | Emergency (ER) | payer MEDICARE, MEDICAID, SELFPAY ==
[2024-04-09 15:14] VITALS: BP 137/77; PULSE 89; RESP 16; TEMP 36.8; O2SAT 97; BMI 19.3
--- NOTE | 2024-04-09 15:17 | ED.GENADULT ---
HPI - General Adult General Chief complaint: Skin/Abscess/Foreign Body Stated complaint: remove aye Time Seen by Provider: 04/09/24 15:17 Source: patient, RN notes reviewed and old records reviewed Mode of arrival: ambulatory Limitations: no limitations History of Present Illness ED Provider: Bartolo HPI narrative: 63-year-old female presents for evaluation of staple removal. Patient was seen here 8 days ago after slipping and falling on ice. She has 2 aye placed to the posterior scalp in his here to have them removed She has no pain and no drainage from the area Related Data Home Medications ?Medication ?Instructions ?Recorded ?Confirmed albuterol sulfate 90 mcg/actuation 2 puff inhalation Q6H PRN SOB 04/03/23 12/16/23 aerosol inhaler amlodipine 5 mg tablet 5 mg PO DAILY 04/03/23 12/16/23 zwnovxgdxj-fpsxbesuqenzl-aqslyrpx 1 PO Q6H PRN pain 04/03/23 12/16/23 50 mg-300 mg-40 mg capsule gabapentin 600 mg tablet 600 mg PO BID 04/03/23 12/16/23 linaclotide 290 mcg capsule 290 mcg PO DAILY 04/03/23 12/16/23 (Linzess) meloxicam 15 mg tablet 15 mg PO DAILY PRN pain 04/03/23 12/16/23 rimegepant 75 mg disintegrating 75 mg PO DAILY PRN migraine 04/03/23 12/16/23 tablet (Nurtec ODT) tizanidine 2 mg tablet 4 mg PO TID 04/03/23 12/16/23 venlafaxine 150 mg tablet,extended 150 mg PO DAILY 04/03/23 12/16/23 release 24 hr fexofenadine 60 mg tablet (Suze 60 mg PO DAILY 11/13/23 12/16/23 Allergy) tacrolimus 0.1 % topical ointment 1 appl topical BID 11/13/23 12/16/23 venlafaxine 75 mg tablet 75 mg PO DAILY 11/13/23 12/16/23 Previous Rx's ?Medication ?Instructions ?Recorded ibuprofen 600 mg tablet 600 mg PO Q6-8H PRN pain #40 tabs 04/03/23 erythromycin 5 mg/gram (0.5 %) eye 0.5 inch ophthalmic-Right QID #3.5 03/23/24 ointment grams Allergies Allergy/AdvReac Type Severity Reaction Status Date / Time nitrofurantoin Allergy Intermediate Muscle Pain Verified 04/09/24 15:15 [From MACROBID] caffeine [From Cafergot] Allergy Unknown Verified 04/09/24 15:15 ergotamine [From Cafergot] Allergy Unknown Verified 04/09/24 15:15 From DEMEROL Allergy Intermediate HIVES Uncoded 04/01/24 08:18 Review of Systems Constitutional: Constitutional: Denies headache(s) ENT: Denies headache(s) Integumentary/Breasts: Skin/Breast: Reports wounds Neurologic: Denies headache(s) PMFSH Past Medical History Medical History Neck pain Syncope Hypertension Hypotension Pacemaker Surgical History History of surgery H/O oral surgery H/O right knee surgery Social History Social History Alcohol intake: current Alcohol intake frequency: holidays/special occasions only Patient Tobacco Use Status: Never used Tobacco Advance Directives: No Advance Directives Information Provided: No Physical Exam ED Vital Signs: Vital Signs - 24 hr 04/09/24 15:14 Temperature 98.2 F Pulse Rate 89 Respiratory Rate 16 Blood Pressure 137/77 Pulse Oximetry 97 Oxygen Delivery Method Room Air BMI result Body Mass Index 19.3 HENMT Other: Healing 1-1/2 cm laceration to the posterior scalp, there is some scabbing but no open wounds, no dehiscence, no drainage, no surrounding erythema Medical Decision Making Medical Decision Making MDM Narrative: We are easily able to remove the 2 aye without complications. Differential Diagnosis Differential Diagnoses: The differential diagnosis associated with the presentation includes Laceration Staple removal Acute wound Discharge Plan Discharge Clinical Impression: Encounter for removal of aye Patient Disposition: Home, Self-Care Instructions: Staple Care (ED) Additional Instructions: You had 2 aye removed without any complications. You may apply topical antibiotic once a day It is okay to get the area wet now. Follow-up with your primary doctor, return for new or worsening symptoms Prescriptions: No Action gabapentin 600 mg tablet 600 mg PO BID tizanidine 2 mg tablet 4 mg PO TID meloxicam 15 mg tablet 15 mg PO DAILY PRN (Reason: pain) amlodipine 5 mg tablet 5 mg PO DAILY albuterol sulfate 90 mcg/actuation HFA aerosol inhaler 2 puff INHALATION Q6H PRN (Reason: SOB) venlafaxine 150 mg tablet extended release 24hr 150 mg PO DAILY wynfqcjend-qkrlzibavcgut-arbk 50-300-40 mg capsule 1 PO Q6H PRN (Reason: pain) Linzess 290 mcg capsule 290 mcg PO DAILY Nurtec ODT 75 mg tablet,disintegrating 75 mg PO DAILY PRN (Reason: migraine) ibuprofen 600 mg tablet 600 mg PO Q6-8H PRN (Reason: pain) Qty: 40 0RF erythromycin 5 mg/gram (0.5 %) ointment 0.5 inch ophthalmic-Right QID Qty: 3.5 0RF tacrolimus 0.1 % ointment 1 appl topical BID venlafaxine 75 mg tablet 75 mg PO DAILY fexofenadine [Usze Allergy] 60 mg tablet 60 mg PO DAILY Print Language: Armenian
--- OUTSIDE RECORDS SUMMARY | 2024-04-09 15:21 | XMS_ITS | Encounter Summary ---
Author Organization [facility] Address [address] [place] [address] Care Team Providers Care Memorial Designer Name Role Phone Tamika Barba PA-C Primary Care Provi tony Rashawn Coffey MD Unavailable [phone] Valerio Wilson MD Unavailable [phone] Encounter Details Date Type Department Care Team (Late st Contact Info) Description 04/01/2024 Orders Only [facility] [address] [place] [address] Emergency Medicine, Scan Social History Tobacco Use Types Packs/Day [...] on file documented as of this encounter Procedures Procedure Name Priority Date/Time Associated Diagnosis Comments CT SCAN EXTERNAL RESULT Routine 04/01/2024 10:[address] SCAN EXTERNAL RESULT Routine 04/01/2024 10:09 AM EST documented in this encounter Results * CT Scan External Result (04/01/2024 10:11 AM EST) Anatomical Region Laterality Modality Computed Tomogra phy Scan Emergency Medicine IMG CT ORDERABLE S * CT Scan External Result (04/01/2024 10:09 AM EST) Anatomical Region Laterality Modality Computed Tomogra phy Scan Emergency Medicine IMG CT ORDERABLE S documented in this encounter Visit Diagnoses Not on filedocumented in this encounter Care Teams Memorial Designer Relationship Specialty Start Date End Date Tamika Barba PA-C [address] [place] [address] PCP - General Internal Medicine 04/22/23 Rashawn Coffey MD [address] [address] Referring Provider Gastroenterology 02/07/24 Valerio Wilson MD [address] [place] [address] Referring Provider Rheumatology 02/07/24 documented as of this encounter
--- OUTSIDE RECORDS SUMMARY | 2024-04-09 15:21 | XMS_ITS | Encounter Summary ---
Author Organization [facility] Address [address] [place] [address] Care Team Providers Care Waterfront Director Name Role Phone Tamika Barba PA-C Primary Care Provi tony Rashawn Coffey MD Unavailable [phone] Valerio Wilson MD Unavailable [phone] Encounter Details Date Type Department Care Team (Late st Contact Info) Description 04/05/2024 Scanned Document [facility] [address] [place] [address] Emergency Medicine, Scan Social History Tobacco Use [...] on filedocumented in this encounter Care Teams Waterfront Director Relationship Specialty Start Date End Date Tamika Barba PA-C [address] [place] [address] PCP - General Internal Medicine 04/22/23 Rashawn Coffey MD [address] [address] Referring Provider Gastroenterology 02/07/24 Valerio Wilson MD [address] [place] [address] Referring Provider Rheumatology 02/07/24 documented as of this encounter
--- OUTSIDE RECORDS SUMMARY | 2024-04-09 15:21 | XMS_ITS | Clinical Summary ---
Author Organization [facility] Address [address] [place] [address] Care Team Providers Care Track Grinder Operator Name Role Phone Tamika Barba PA-C Primary Care Provi tony Rashawn Coffey MD Unavailable [phone] Valerio Wilson MD Unavailable Allergies Active Allergy Reactions Criticality Noted Date [...] Encounters Date Type Department Care Team Description 04/05/2024 Scanned Document [facility] [address] [place] [address] Emergency Medicine, Scan 04/01/2024 Orders Only [facility] [address] [facility] [place] [address] Emergency Medicine, Scan 02/07/2024 1:00 PM EST Telemedicine [facility] [place] [id number] [address] Cathy Farrell, ENROLLMENT MANAGER Annual wellness visit (Primary Dx) 01/25/2024 Refill [facility] [address] [address] Tamika Barba PA-C Anxiety; Recurrent major depressive [...] Patients (1 - 1-dose 75+ series) 2036 Hepatitis B Vaccines Aged Out No long er eligible based on patient's age to complete this topic Procedures Procedure Name Priority Date/Time Associated Diagnosis Comments CT SCAN EXTERNAL RESULT Routine 04/01/2024 10:[address] SCAN EXTERNAL RESULT Routine 04/01/2024 10:09 AM EST from Last 3 Months Results * CT Scan External Result (04/01/2024 10:11 AM EST) Only the most recent of2 resultswithin the time period is included. Anatomical Region Laterality Modality Computed Tomogra phy Scan Emergency Medicine IMG CT ORDERABLE S from Last 3 Months Care Teams Track Grinder Operator Relationship Specialty Start Date End Date Tamika Barba PA-C [address] [place] [address] PCP - General Internal Medicine 04/22/23 Rashawn Coffey MD [address] [address] Referring Provider Gastroenterology 02/07/24 Valerio Wilson MD [address] [place] [address] Referring Provider Rheumatology 02/07/24
--- OUTSIDE RECORDS SUMMARY | 2024-04-09 15:21 | XMS_ITS | Encounter Summary ---
Author Organization [facility] Address [address] [place] [address] Care Team Providers Care Frame Carver Spindle Name Role Phone Tamika Barba PA-C Primary Care Provi tony Rashawn Coffey MD Unavailable [phone] Valerio Wilson MD Unavailable [phone] Encounter Details Date Type Department Care Team (Late st Contact Info) Description 06/27/2023 Scanned Document [facility] ORTHO SURGERY SCAN Orthopedic Surgery, Scan Social [...] on filedocumented in this encounter Care Teams Frame Carver Spindle Relationship Specialty Start Date End Date Tamika Barba PA-C [address] [place] [address] PCP - General Internal Medicine 04/22/23 Rashawn Coffey MD [address] [address] Referring Provider Gastroenterology 02/07/24 Valerio Wilson MD [address] [place] [address] Referring Provider Rheumatology 02/07/24 documented as of this encounter
--- OUTSIDE RECORDS SUMMARY | 2024-04-09 15:21 | XMS_ITS | Encounter Summary ---
Author Organization [facility] [place] [id number] Care Team Providers Care Senior Applications Analyst Name Role Phone Tamika Barba PA-C Primary Care Provi tony Rashawn Coffey MD Unavailable [phone] Valerio Wilson MD Unavailable [phone] Encounter Details Date Type Department Care Team (Late st Contact Info) Description 04/24/2023 Scanned Document [address] [place] [address] Primary Care, Scan Social History Tobacco Use [...] on filedocumented in this encounter Care Teams Senior Applications Analyst Relationship Specialty Start Date End Date Tamika Barba PA-C 100 [place] [address] PCP - General Internal Medicine 04/22/23 Rashawn Coffey MD [address] [address] Referring Provider Gastroenterology 02/07/24 Valerio Wilson MD [address] [place] [address] Referring Provider Rheumatology 02/07/24 documented as of this encounter
--- OUTSIDE RECORDS SUMMARY | 2024-04-09 15:21 | XMS_ITS | Encounter Summary ---
Author Organization [facility] Address [address] [place], [place] [id number] Care Team Providers Care Event Marketing Representative Name Role Phone Tamika Barba PA-C Primary Care Provi tony Rashawn Coffey MD Unavailable [phone] Valerio Wilson MD Unavailable [phone] Encounter Details Date Type Department Care Team (Late st Contact Info) Description 08/27/2023 Scanned Document [address] [address] Tamika Barba PA-C [address] [place] [address] Social History Tobacco Use Types Packs/Day Years [...] on filedocumented in this encounter Care Teams Event Marketing Representative Relationship Specialty Start Date End Date Tamika Barba PA-C [address] [place] [address] PCP - General Internal Medicine 04/22/23 Rashawn Coffey MD [address] [address] Referring Provider Gastroenterology 02/07/24 Valerio Wilson MD [facility] [place] [address] Referring Provider Rheumatology 02/07/24 documented as of this encounter
[2024-04-09 15:23] VITALS: BP 137/77; PULSE 89; RESP 16; TEMP 36.8; O2SAT 97
== END 2024-04-09 15:23 | disposition home or self-care (01) ==
PROVIDERS: Emergency Provider Emergency Medicine; PCP Physician Assistant Medical
DX: Z48.02 Encounter for removal of sutures (principal)
CPT/HCPCS: 99282

== ENCOUNTER 2024-06-18 14:28 | Outpatient (AMB) | payer MEDICARE, MEDICAID, SELFPAY ==
--- NOTE | 2024-06-18 14:44 | MHC.OFFWIV ---
Intake Vital Signs 06/18/24 14:48 Weight 124 lb BP 116/80 Blood Pressure Location Rt brachial Position Sitting Pulse 96 Pulse Source Pulse Oximeter Temp 98.1 F Temp Source Oral Pulse Oximetry (%) 98 Oxygen Delivery Method Room Air Intake Visit Reasons: EP ?cold symptoms, diff breathing Intake Note: Patient here for SOB, headache and cough that has been present for 1 month. Patient Tobacco Use Status: Never used Tobacco Allergies nitrofurantoin [From MACROBID] Allergy (Intermediate, Verified 06/18/24 14:49) Muscle Pain caffeine [From Cafergot] Allergy (Verified 06/18/24 14:49) Unknown ergotamine [From Cafergot] Allergy (Verified 06/18/24 14:49) Unknown From DEMEROL Allergy (Intermediate, Uncoded 06/18/24 14:49) HIVES Do you need a note to return to daycare/school/sports/work: No HPI HPI Comments History of Present Illness Details History - The patient is a 63-year-old female presenting with respiratory symptoms and sinus discomfort. - Symptoms initially began on May 18, improved with antibiotics but returned 17 days ago. - Notable sinus-related dental pain and respiratory difficulty have exacerbated. - Patient has asthma and reported an inhaler; frequent migraines and sinus headaches occur. - No ear pain reported, but body aches and occasional dizziness are present. - Symptom severity has increased, leading to today's visit. Physical Exam General: Cooperative, healthy appearing, comfortable and no acute distress Orientation/consciousness: Patient oriented x3 Limitations: No limitations Head: Normal to inspection Ears: Hearing grossly normal bilaterally, external ears normal and TM's normal bilaterally Nose: Normal external nose present, Normal nares present and No nasal discharge present Face and sinus: Normal facial exam and bilat ethmoidal sinuses tender Mouth: Normal oral and palatal mucosa present and moist mucous membranes Throat: Yes tonsils normal, Yes uvula midline. Posterior oropharynx erythema Eyes: Appearance normal, both eyes and all related structures Neck: Normal visual inspection Respiratory: exp wheezes and some rhonchi. Normal respiratory effort, able to speak in complete sentences, no respiratory distress, not tachypneic, no tripod positioning and no use of accessory muscles. Cardiovascular: Regular rate and rhythm. Normal S1 and S2 Skin: No rashes or lesions noted Neuro: Patient oriented x3. Extremities: Normal to inspection and Yes no clubbing, cyanosis or edema [facility] Medical History Neck pain Syncope Hypertension Hypotension Pacemaker Surgical History History of surgery H/O oral surgery H/O right knee surgery Social History Alcohol intake: current Alcohol intake frequency: holidays/special occasions only Patient Tobacco Use Status: Never used Tobacco Review of Systems Const All systems reviewed & are unremarkable except as noted in HPI and below Physical Exam Vital Signs: Last Vital Signs Temp 98.1 F 06/18/24 14:48 Pulse 96 06/18/24 14:48 BP 116/80 06/18/24 14:48 Pulse Ox 98 06/18/24 14:48 Oxygen Delivery Method Room Air 06/18/24 14:48 Assessment & Plan Assessment & Plan (1) Lower respiratory infection (e.g., bronchitis, pneumonia, pneumonitis, pulmonitis): Code(s): J22 - Unspecified acute lower respiratory infection Plan: VSS, pt well appearing and PE remarkable for wheezes and some rhonchi. The patient's management plan focuses on acute sinusitis, asthma management, and addressing potential side effects from treatment for migraines. Augmentin was prescribed for her newest sinus symptoms to address a presumptive bacterial cause. Asthma control will be aided by providing a new albuterol inhaler in place of the one and utilizing a five-day prednisone burst to curb inflammatory processes contributing to her respiratory discomfort and wheezing. Due diligence on drug interactions was communicated regarding the prescribed fluconazole, and she will avoid concurrent use with furosemide. I recommended continuing her allergy regimen, incorporating saline nasal rinses, and ensuring she understands and adheres to this strategy moving forward. Patient was informed and verbally consented to the use of an ambient scribe for clinic note documentation during this visit (2) Sinusitis, acute ethmoidal: Code(s): J01.20 - Acute ethmoidal sinusitis, unspecified Qualifiers: Recurrence: non-recurrent Qualified Code(s): J01.20 - Acute ethmoidal sinusitis, unspecified Plan: as above Medications: New prednisone 40 mg (2 x 20 mg) PO QAM 10 tabs 0RF fluconazole may repeat second dose 72 hrs after first dose if symptoms persist 150 mg PO Q3D 2 tabs 0RF albuterol sulfate 90 mcg/actuation 2 puffs inhalation Q6H PRN 8.5 grams 0RF SOB amoxicillin-pot clavulanate 875-125 mg 1 tab PO Q12H 14 tabs 0RF Coding Level of Care Code New Pt Level 3 (28584) Diagnoses Lower respiratory infection (e.g., bronchitis, pneumonia, pneumonitis, pulmonitis) J22 Acute non-recurrent ethmoidal sinusitis J01.20 Recurrence: non-recurrent
[2024-06-18 14:48] VITALS: BP 116/80; PULSE 96; TEMP 36.7; O2SAT 98
--- OUTSIDE RECORDS SUMMARY | 2024-06-18 15:10 | XMS_ITS | Clinical Summary ---
Author Organization [facility] Address [address] [place] [address] Care Team Providers Care Scientific Technical Writer Name Role Phone Tamika Barba PA-C Primary Care Provi tony Rashawn Coffey MD Unavailable Unavailable Valerio Wilson MD Unavailable [phone] Allergies Active Allergy Reactions Criticality Noted Date Comments Meperidine Unknown/Patient and Family Unable to Define Medium 04/27/2023 Nitrofurantoin Myalgia/Myositis/Arthralgia/Arthritis Low 04/22/2023 Medications gabapentin (NEURONTIN) 600 MG tablet Take 1 tablet (600 mg total) by mouth 2 (two) times a day. 4 Active Linzess 290 MCG Cap capsule Take 1 capsule (290 mcg total) by mouth daily. 4 Active meloxicam (MOBIC) 15 MG tablet 1 tablet (15 mg total). 4 Active Nurtec 75 MG disintegrating tablet Take 1 tablet (75 mg total) by mouth daily as needed. 3 Active tiZANidine (ZANAFLEX) 2 MG tablet Take 2 tablets (4 mg total) by mouth 3 (three) times a day. 3 Active venlafaxine (EFFEXOR-XR) 150 MG 24 hr capsuleIndications :Anxiety,Recurrent major depressive disorder, in partial remission Take 1 capsule (150 mg total) by mouth daily. 90 capsule 3 4 Active diclofenac enteric coated (VOLTAREN) 75 MG EC tablet Take 1 tablet (75 mg total) by mouth. Administer with food avoid GI upset. Active venlafaxine (EFFEXOR) 75 MG tabletIndications: Anxiety,Recurrent major depressive disorder, in partial remission TAKE 1 TABLET BY MOUTH EVERY DAY 90 tablet 3 5 Active amLODIPine (NORVASC) 5 MG tabletIndications: Primary hypertension TAKE 1 TABLET (5 MG TOTAL) BY MOUTH DAILY. 90 tablet 3 5 Active Active Problems Problem Noted Date Diagnosed [...] Encounters Date Type Department Care Team Description 04/14/[address] [place] [phone] Tamika Barba PA-C Anxiety; Recurrent major depressive disorder, in partial remission; Primary hypertension 04/05/2024 Scanned Document [facility] [address] [place] [address] Emergency Medicine, Scan 04/01/2024 Orders Only [facility] [address] [place] [address] Emergency Medicine, Scan from Last 3 Months Immunizations Immunization Administration Dates Next Due DTaP 03/31/2012 Pneumococcal [...] Date Recorded PHQ-2 Total Score 2 02/06/2024 Comments Unknown Sex and Gender Information Value Date Recorded Sex Assigned at Female 03/25/2023 2:40 PM EST Legal Sex Female 2:39 PM EST Gender Identity Not on file [...] Anatomical Region Laterality Modality Computed Tomogra phy us Scan Emergency Medicine IMG CT ORDERABLES Edited Result - Final from Last 3 Months Insurance MEDICARE PART A & B Care Teams Scientific Technical Writer Relationship Specialty Start Date End Date Tamika Barba PA-C [address] [place] [address] PCP - General Internal Medicine 04/22/23 Rashawn Coffey MD [address] [place] [address] Referring Provider Gastroenterology 02/07/24 Valerio Wilson MD [address] [place] [address] Referring Provider Rheumatology 02/07/24
--- OUTSIDE RECORDS SUMMARY | 2024-06-18 15:10 | XMS_ITS ---
Author Name [facility] Organization Unknown Encounters Encounter Type Encounter Reason Primary Diagnosis Location Date Ambulatory Encounter for general adult medical examination without abnormal findings Encounter for general adult medical examination without abnormal findings [facility] 02/07/2024 Ambulatory Fracture of unspecified carpal bone, left wrist, sequela Fracture of unspecified carpal bone, left wrist, sequela [facility] 04/22/2023 Care Team Organization Name Specialty Phone Email Start Date End Da te [facility] Primary Care 04/22/2023 [facility] CHRIS LEAHY Primary Care 04/22/2023 [facility] NO PCP Primary Care 03/25/2023
--- OUTSIDE RECORDS SUMMARY | 2024-06-18 15:10 | XMS_ITS | Encounter Summary ---
Author Organization [facility] Address [address] [place] [address] Care Team Providers Care Customs Officer Name Role Phone Tamika Barba PA-C Primary Care Provi tony Rashawn Coffey MD Unavailable Unavailable Valerio Wilson MD Unavailable [phone] Encounter Details Date Type Department Care Team (Late st Contact Info) Description 08/27/2023 Scanned Document [facility] 100 [facility] [address] [place] [address] Tamika Barba PA-C [address] [place] [address] Social History Tobacco Use Types Packs/Day Years Used Date Smoking Tobacco: Never Smokeless Tobacco: Never Alcohol Use Standard Drinks/Week Comments Yes 0 (1 standard drink = 0.6 oz pur e alcohol) PHQ-2 Answer Date Recorded PHQ-2 Total Score 1 04/22/2023 Comments Unknown Sex and Gender Information Value Date Recorded Sex Assigned at Female 03/25/2023 2:40 PM EST Legal Sex Female 2:39 PM EST Gender Identity Not on file Sexual Orientation Not on file documented as of this encounter Plan of Treatment Not on file documented as of this encounter Visit Diagnoses Not on filedocumented in this encounter Care Teams Customs Officer Relationship Specialty Start Date End Date Tamika Barba PA-C [address] [place] [address] PCP - General Internal Medicine 04/22/23 Rashawn Coffey MD [address] [place] [address] Referring Provider Gastroenterology 02/07/24 Valerio Wilson MD [address] [place] [address] Referring Provider Rheumatology 02/07/24 documented as of this encounter
--- OUTSIDE RECORDS SUMMARY | 2024-06-18 15:10 | XMS_ITS | Encounter Summary ---
Author Organization [facility] Address [address] [place] [address] Care Team Providers Care Director Of Rehabilitation And Wellness Name Role Phone Tamika Barba PA-C Primary Care Provi tony Rashawn Coffey MD Unavailable Unavailable Valerio Wilson MD Unavailable [phone] Encounter Details Date Type Department Care Team (Late st Contact Info) Description 06/27/2023 Scanned Document [facility] ORTHO SURGERY SCAN Orthopedic Surgery, Scan Social [...] on filedocumented in this encounter Care Teams Director Of Rehabilitation And Wellness Relationship Specialty Start Date End Date Tamika Barba PA-C [address] [place] [address] PCP - General Internal Medicine 04/22/23 Rsahawn Coffey MD [address] [place] [address] Referring Provider Gastroenterology 02/07/24 Valerio Wilson MD [address] [place] [address] Referring Provider Rheumatology 02/07/24 documented as of this encounter
--- OUTSIDE RECORDS SUMMARY | 2024-06-18 15:10 | XMS_ITS | Encounter Summary ---
Author Organization [facility] Address [address] [place] [address] Care Team Providers Care Disc Pad Grinder Name Role Phone Tamika Barba PA-C Primary Care Provi tony Rashawn Coffey MD Unavailable Unavailable Valerio Wilson MD Unavailable [phone] Encounter Details Date Type Department Care Team (Late st Contact Info) Description 04/24/2023 Scanned Document [address] [place] [phone] Primary Care, Scan Social History Tobacco Use [...] on filedocumented in this encounter Care Teams Disc Pad Grinder Relationship Specialty Start Date End Date Tamika Barba PA-C [address], [place] [id number] PCP - General Internal Medicine 04/22/23 Rashawn Coffey MD [address] [place] [address] Referring Provider Gastroenterology 02/07/24 Valerio Wilson MD [address] [place] [address] Referring Provider Rheumatology 02/07/24 documented as of this encounter
--- OUTSIDE RECORDS SUMMARY | 2024-06-18 15:10 | XMS_ITS | Encounter Summary ---
Author Organization [facility] Address [address] [place] [address] Care Team Providers Care Group Leader Name Role Phone Tamika Barba PA-C Primary Care Provi tony Rashawn Coffey MD Unavailable Unavailable Valerio Wilson MD Unavailable [phone] Encounter Details Date Type Department Care Team (Late st Contact Info) Description 04/05/2024 Scanned Document [facility] [address] [place] [phone] Emergency Medicine, Scan Social History Tobacco Use [...] on filedocumented in this encounter Care Teams Group Leader Relationship Specialty Start Date End Date Tamika Barba PA-C [address] [place] [id number] PCP - General Internal Medicine 04/22/23 Rashawn Coffey MD [address] [place] [address] Referring Provider Gastroenterology 02/07/24 Valerio Wilson MD [address] [place] [address] Referring Provider Rheumatology 02/07/24 documented as of this encounter
== END 2024-06-18 15:23 | disposition home or self-care (01) ==
PROVIDERS: PCP Physician Assistant Medical; Visit Provider Physician Assistant
DX: J22 Unspecified acute lower respiratory infection (principal); J01.20 Acute ethmoidal sinusitis, unspecified

== ENCOUNTER → 2024-06-18 14:28 | Outpatient (BNVA) | payer MEDICARE, MEDICAID, SELFPAY | PROVIDERS: PCP Physician Assistant Medical; Visit Provider Physician Assistant | DX: J22 Unspecified acute lower respiratory infection (principal); J01.20 Acute ethmoidal sinusitis, unspecified | CPT/HCPCS: 99212 ==